=== PATIENT | male | born 1950 | race Caucasian/White ===

== ENCOUNTER 2017-01-07 14:17 | Emergency (ER) | payer MEDICARE, OTHER ==
[~2017-01-07] VITALS: Ht 167.6 cm; Wt 76.0 kg
[~2017-01-07 14:17] MED LIST: ALBU6.7H INH; ALLO300T2 PO; ALPR.5 PO; ASPI1TAB69 PO; BENA40TA PO; EFFE150C PO; LIPI20TA PO; MAXZTAB PO; MEDR4PAK PO; MIRA0.12 PO; OXYC1CAP PO; PERC5TAB12 PO; PLAV75TA29 PO; SITA25 PO; VIST25CA PO
[2017-01-07 14:20] VITALS: BP 98/63; PULSE 62; RESP 16; TEMP 98; O2SAT 99
[2017-01-07] MEDS ORDERED: MIRA0.12 PO (14:44)
--- NOTE | 2017-01-07 14:47 | PD ---
HPI Chief Complaint: Medication Refill Request Time Seen by Provider: 14:44 Travel History International Travel<30 days: No Contact w/Intl Traveler<30days: No Traveled to known affect area: No History of Present Illness HPI 66-year-old male presents the emergency Department with request for medication refill of his Mirapex. Patient has history of restless leg syndrome. He recently had a mixup with his prescriptions and insurance changes and he's been unable to refill his Mirapex. Patient is unable to sleep for the past 2 nights because of it. He has no other acute medical issues or problems. He is allergic to Cipro and sulfa. PFSH Past Medical History Hx Anticoagulant Therapy: Yes (PLAVIX) Asthma: Yes Anxiety: Yes Depression: Yes Cardiac Catheterization: Yes High Cholesterol: Yes Chest Pain: Yes Diabetes: Yes (TYPE 2) Patient Takes Glucophage: No GERD: Yes Gout: Yes Hypertension: Yes Kidney Stones: Yes Musculoskeletal: Yes (CHRONIC BACK PAIN GETS INJECTIONS) Neurologic: Yes (RLS) Respiratory: Yes (ASTHMA) Triglycerides - High: Yes Past Surgical History Other Surgery: Yes (Rhinoplasty/TRIGER FINGER RELEASE) Social History Alcohol Use: Yes (Rarely) Tobacco Use: No Substance Use: No Allergies-Medications (Allergen,Severity, Reaction): Coded Allergies: Cipro (Verified Allergy, Severe, RASH, 01/07/17) Sulfa (Verified Allergy, Unknown, ITCHY, 01/07/17) Reported Meds & Prescriptions Reported Meds & Active Scripts Active Mirapex (Pramipexole Dihydrochloride) 0.125 Mg Tab 0.125 Mg PO HS Reported Percocet (Oxycodone-Acetaminophen) 5-325 mg Tab 1 Tab PO Q4H PRN Proventil Hfa 6.7 GM Inh (Albuterol Sulfate) 90 Mcg/Act Aer 2 Puff INH Q4-6H PRN Januvia (Sitagliptin Phosphate) 25 Mg Tab 25 Mg PO DAILY Effexor XR 24 HR (Venlafaxine HCl) 150 Mg Cap 150 Mg PO DAILY Allopurinol 300 Mg Tab Unknown Dose PO DAILY Aspirin 81 Mg Tabdr 81 Mg PO DAILY Xanax (Alprazolam) 0.5 Mg Tab 0.5 Mg PO TID PRN Mirapex (Pramipexole Dihydrochloride) 0.125 Mg Tab Unknown Dose PO HS Lipitor (Atorvastatin Calcium) 20 Mg Tab 20 Mg PO HS Maxzide-25 (Triamterene-Hydrochlorothiazide) 37.5-25 Mg Tab 1 Tab PO DAILY Benazepril (Benazepril HCl) 40 Mg Tab 40 Mg PO DAILY Review of Systems Except as stated in HPI: all other systems reviewed are Neg General / Constitutional: No: Fever Eyes: No: Visual changes HENT: No: Headaches Cardiovascular: No: Chest Pain or Discomfort Respiratory: No: Shortness of Breath Gastrointestinal: No: Abdominal Pain Genitourinary: No: Dysuria Musculoskeletal: No: Pain Skin: No Rash Neurologic: No: Weakness Psychiatric: No: Depression Endocrine: No: Polydipsia Hematologic/Lymphatic: No: Easy Bruising Physical Exam Narrative GENERAL: Patient appears tired but in no acute distress. SKIN: Warm and dry. Normal color. Normal turgor. HEAD: Atraumatic. Normocephalic. EYES: Pupils equal and round. No scleral icterus. No injection or drainage. ENT: No nasal bleeding or discharge. Mucous membranes pink and moist. Pharynx is normal. NECK: Trachea midline. Supple nontender. CARDIOVASCULAR: Regular rate and rhythm. RESPIRATORY: No accessory muscle use. Clear to auscultation. Breath sounds equal bilaterally. MUSCULOSKELETAL: Extremities without clubbing, cyanosis, or edema. No obvious deformities. NEUROLOGICAL: Awake and alert. No obvious cranial nerve deficits. Motor grossly within normal limits. Five out of 5 muscle strength in the arms and legs. Normal speech. PSYCHIATRIC: Appropriate mood and affect; insight and judgment normal. Data Data Last Documented VS Vital Signs Date Time Temp Pulse Resp B/P Pulse Ox O2 Delivery O2 Flow Rate FiO2 01/07/17 14:20 98.0 62 16 98/63 99 MDM Medical Decision Making Medical Screen Exam Complete: Yes Emergency Medical Condition: Yes Differential Diagnosis Restless leg syndrome. Insurance issues. Refill request. Narrative Course Patient is medically stable at time of exam. Patient is given a refill of Mirapex 0.125 mg 1 at bedtime. #90. No refill. Patient is to follow with his primary care physician as needed. Diagnosis Primary Impression: Medication refill Additional Impression: Restless leg syndrome Referrals: Primary Care Physician Patient Instructions: General Instructions Additional Instructions: Patient is given a refill of Mirapex 0.125 mg 1 at bedtime. #90. No refill. Patient is to follow with his primary care physician as needed. Med/Other Pt SpecificInfo: Prescription(s) given Scripts Pramipexole (Mirapex)0.125 Mg Tab0.125 Mg PO HS #90 TAB Ref 0 Prov:Merlin De León MD 01/07/17 Disposition: 01 DISCHARGE HOME Condition: Stable Luke Chung Jan 07, 2017 14:47
== END 2017-01-07 14:57 | disposition home or self-care (01) ==
LOC: PHEFT 14:17
DX: G25.81 Restless legs syndrome (principal); Z79.01 Long term (current) use of anticoagulants; J45.909 Unspecified asthma, uncomplicated; E11.9 Type 2 diabetes mellitus without complications; I10 Essential (primary) hypertension; Z79.899 Other long term (current) drug therapy
CPT/HCPCS: 99281

== ENCOUNTER → 2017-01-11 | Day surgery (SDC) | payer MEDICARE, OTHER ==
[~2017-01-11] MED LIST changes: +ALPR.25 PO; +BUPIVACAINE/EPINEPHRINE 0.5% PF 30 ML VIAL ONE; +CARV3.12 PO; +KETOROLAC TROMETHAMINE 30 MG/ML (IVP) VIAL IV PUSH ONE; +LACTATED RINGER'S 1000 ML INJ 1,000 ML ONE; -MEDR4PAK PO; +MIDAZOLAM HCL 2 MG/2 ML VIAL ONE; +ONDANSETRON HCL 4 MG/2 ML VIAL IV PUSH ONE; -OXYC1CAP PO; +PROPOFOL 100 MG/10 ML INJ IV ONE; -VIST25CA PO; +ceFAZolin 2 GM PREMIX 50 ML ONE
--- NOTE | 2017-01-15 09:46 | MP ---
cc: ROCIO LANCASTER M.D. DATE OF SURGERY: 01/11/2017 PREOPERATIVE DIAGNOSIS Left knee medial meniscus tear and exposed bone, grade IV chondromalacia anterior medial aspect of weightbearing portion of the medial femoral condyle. POSTOPERATIVE DIAGNOSIS Left knee medial meniscus tear and exposed bone, grade IV chondromalacia anterior medial aspect of weightbearing portion of the medial femoral condyle. PROCEDURE 1. Left knee arthroscopic partial medial meniscectomy. 2. Left knee arthroscopic chondral abrasion with drilling medial femoral condyle. ANESTHESIA General. SURGEON Rocio Lancaster MD ESTIMATED BLOOD LOSS Minimal. INDICATION Thiago Morris is an adult male with persistent left knee pain and swelling with MRI findings of medial meniscus tear and significant chondromalacia, grade IV, exposed bone on medial femoral condyle. The risks, benefits and alternatives to treatment were thoroughly discussed in detail and informed consent was obtained. DETAILS OF PROCEDURE The patient was brought to the operating room and was placed under general anesthetic. The left lower extremity was draped and prepped in the usual sterile fashion. IV antibiotics were given. A timeout was completed. Marcaine was injected about the inferolateral portal, portal made. Blunt trocar used to introduce the cannula. The knee was insufflated with saline and the patellofemoral joint visualized which appeared normal. The notch was visualized which appeared normal with normal-appearing ACL, lateral compartment, normal-appearing condyle, meniscus plateau. Medial compartment showed significant chondromalacia on the weightbearing portion of the medial femoral condyle as well as an unstable tear involving the posterior horn of the medial meniscus which involved the inner 30-40% of the posterior horn. Additionally, we saw grade IV chondromalacia on the anterior weightbearing portion of the medial femoral condyle. We proceeded with arthroscopic partial medial meniscectomy using a combination of basket forceps and arthroscopic shaver. We then proceeded to perform a gentle chondroplasty to smooth down the cartilage on the medial femoral condyle including the area of the exposed bone. Cartilage was delaminated this area and came right off. A decision was made to proceed with gentle chondral abrasion and we abraded the surface and then proceeded with use of a 0.45 K-wire to make tiny drill holes in the bone and confirm that we had good bleeding. We then repeated the arthroscopy to remove any small bone fragments and smooth and contour. We then took our final photograph. Repeat diagnostic arthroscopy revealed no loose bodies. The arthroscopic equipment was removed. Marcaine had been injected about the portals. Steri-Strips applied. Sterile dressing applied. The patient was awoken and returned to the recovery room in stable condition. MD SHARON Palma/PATY /8:44 AM /9:33 AM
== END | disposition home or self-care (01) ==
LOC: ESDC 06:23
PROVIDERS: ATTEND Orthopaedic Surgery Sports Medicine
DX: S83.242A Other tear of medial meniscus, current injury, left knee, initial encounter (principal); M94.262 Chondromalacia, left knee
CPT/HCPCS: 01400; 29879; 29881; J0690; J1885; J2250; J2405; J3010; J7120

== ENCOUNTER 2017-01-20 20:31 | Emergency (ER) | payer MEDICARE, OTHER ==
[~2017-01-20 20:31] MED LIST changes: -ALPR.25 PO; -BUPIVACAINE/EPINEPHRINE 0.5% PF 30 ML VIAL ONE; -CARV3.12 PO; -KETOROLAC TROMETHAMINE 30 MG/ML (IVP) VIAL IV PUSH ONE; -LACTATED RINGER'S 1000 ML INJ 1,000 ML ONE; -MIDAZOLAM HCL 2 MG/2 ML VIAL ONE; -ONDANSETRON HCL 4 MG/2 ML VIAL IV PUSH ONE; -PLAV75TA29 PO; -PROPOFOL 100 MG/10 ML INJ IV ONE; -ceFAZolin 2 GM PREMIX 50 ML ONE
[2017-01-20 21:01] VITALS: BP 133/101; PULSE 96; RESP 20; TEMP 98
[2017-01-20] MEDS ORDERED: ALBU6.7H INH (22:05)
[2017-01-20] MEDS ORDERED: methylPREDNISolone SOD SUCC 125 MG/2 ML VIAL IVP ONE (22:15)
[2017-01-20] MEDS ORDERED: SODIUM CHLORIDE 0.9% FLUSH 10 ML FLUSH IVF PRN (22:15)
[2017-01-20] MEDS: RESP: ALBUTEROL 2.5 MG/IPRATROPIUM 0.5 MG NEB (SCH) INH (22:19)
--- NOTE | 2017-01-20 22:25 | RADHPO ---
EXAM DATE/TIME: 01/20/2017 22:15 [facility] COMPARISON: CHEST SINGLE AP, May 25, 2016, 11:18. INDICATIONS : Shortness of breath. MEDICAL HISTORY : Hypertension. Hypercholesterolemia. Gastroesophageal reflux disease. Asthma. Diabetes SURGICAL HISTORY : Cardiac cath. ENCOUNTER: Initial ACUITY: 1 day PAIN SCORE: 0/10 LOCATION: Bilateral chest FINDINGS: A single view of the chest demonstrates the lungs to be symmetrically aerated without evidence of mas s, infiltrate or effusion. The cardiomediastinal contours are unremarkable. Osseous structures are intact. CONCLUSION: No acute disease. No significant change has occurred. Theodore Mcdowell MD on January 20, 2017 at 22:23 Board Certified Radiologist. This report was verified electronically.
--- NOTE | 2017-01-20 22:25 | PD ---
HPI Chief Complaint: Cold / Flu Symptoms Time Seen by Provider: 22:02 Travel History International Travel<30 days: No Contact w/Intl Traveler<30days: No Traveled to known affect area: No History of Present Illness HPI 66-year-old male presents to the emergency department by private transportation for complaint of lower extremity pain and cold symptoms. Patient with history of asthma with increasing cold symptoms congestion and wheezing. Patient has been using his nebulizer without relief. Patient is also noted increased discomfort associated with his restless leg syndrome and has some swelling of the left lower extremity is 9 days status post left knee surgery. Patient does not report pleuritic pain. Patient denies hemoptysis. Patient denies fever chills. No yellow green sputum production. Patient is also noted some sinus congestion and dizziness with nausea. Patient has history of CAD and is prescribed Plavix and aspirin has been off his Plavix due to knee surgery also is treated for hypertension dyslipidemia and hyperglycemia. Patient denies tobacco use. Patient states he drinks socially. Last beer was prior to surgery. Patient reports that he stopped taking pain medication 2 days ago. PFSH Past Medical History Narrative Medical CAD dyslipidemia hypertension diabetes asthma arthritis restless leg syndrome knee surgery; no tobacco use, positive alcohol use; nursing notes reviewed Hx Anticoagulant Therapy: Yes (PLAVIX) Asthma: Yes Anxiety: Yes Depression: Yes Cardiac Catheterization: Yes High Cholesterol: Yes Chest Pain: Yes Diabetes: Yes (TYPE 2) Patient Takes Glucophage: No GERD: Yes Gout: Yes Hypertension: Yes Kidney Stones: Yes Musculoskeletal: Yes (CHRONIC BACK PAIN GETS INJECTIONS) Neurologic: Yes (RLS) Respiratory: Yes (ASTHMA) Triglycerides - High: Yes Tetanus Vaccination: > 5 Years Influenza Vaccination: Yes Past Surgical History Other Surgery: Yes (Rhinoplasty/TRIGER FINGER RELEASE) Social History Alcohol Use: Yes (Rarely) Tobacco Use: No Substance Use: No Allergies-Medications (Allergen,Severity, Reaction): Coded Allergies: Cipro (Verified Allergy, Severe, RASH, 01/20/17) Sulfa (Verified Allergy, Unknown, ITCHY, 01/20/17) Reported Meds & Prescriptions Reported Meds & Active Scripts Active Xanax (Alprazolam) 0.25 Mg Tab 0.25 Mg PO Q8H PRN Reported Carvedilol 3.125 Mg Tab 3.125 Mg PO BID Plavix (Clopidogrel Bisulfate) 75 Mg Tab 75 Mg PO DAILY Proventil Hfa 6.7 GM Inh (Albuterol Sulfate) 90 Mcg/Act Aer 2 Puff INH Q4-6H PRN Proventil Hfa 6.7 GM Inh (Albuterol Sulfate) 90 Mcg/Act Aer 2 Puff INH Q4-6H PRN Januvia (Sitagliptin Phosphate) 25 Mg Tab 25 Mg PO DAILY Effexor XR 24 HR (Venlafaxine HCl) 150 Mg Cap 150 Mg PO DAILY Allopurinol 300 Mg Tab Unknown Dose PO DAILY Aspirin 81 Mg Tabdr 81 Mg PO DAILY Xanax (Alprazolam) 0.5 Mg Tab 0.5 Mg PO TID PRN Mirapex (Pramipexole Dihydrochloride) 0.125 Mg Tab Unknown Dose PO HS Lipitor (Atorvastatin Calcium) 20 Mg Tab 20 Mg PO HS Maxzide-25 (Triamterene-Hydrochlorothiazide) 37.5-25 Mg Tab 1 Tab PO DAILY Benazepril (Benazepril HCl) 40 Mg Tab 40 Mg PO DAILY Review of Systems Except as stated in HPI: all other systems reviewed are Neg General / Constitutional: No: Fever, Chills Eyes: No: Visual changes HENT: Positive: Congestion Cardiovascular: No: Chest Pain or Discomfort Respiratory: Positive: Cough, Shortness of Breath, Wheezing Gastrointestinal: Positive: Nausea, No: Vomiting, Diarrhea Genitourinary: No: Urgency, Frequency, Dysuria, Flank Pain Musculoskeletal: Positive: Myalgias, Arthralgias, Limited ROM (Lknee s/p surgery ---improving) Skin: No Rash Neurologic: No: Weakness Psychiatric: No: Anxiety Endocrine: No: Heat Intolerance Hematologic/Lymphatic: No: Easy Bruising Physical Exam Narrative GENERAL: Developed well-nourished male in no acute distress no respiratory distress SKIN: Warm and dry. HEAD: Normocephalic. EYES: No scleral icterus. No injection or drainage. NECK: Supple, trachea midline. No JVD or lymphadenopathy. CARDIOVASCULAR: Regular rate and rhythm without murmurs, gallops, or rubs. RESPIRATORY: Breath sounds equal bilaterally. No accessory muscle use. GASTROINTESTINAL: Abdomen soft, non-tender, nondistended. MUSCULOSKELETAL: No cyanosis, or edema. BACK: Nontender without obvious deformity. No CVA tenderness. Data Data Last Documented VS Vital Signs Date Time Temp Pulse Resp B/P Pulse Ox O2 Delivery O2 Flow Rate FiO2 01/21/17 03:09 90 20 162/92 96 01/21/17 01:10 Room Air 01/20/17 21:01 98.0 Orders Complete Blood Count With Diff (01/20/17 22:03) Basic Metabolic Panel (Bmp) (01/20/17 22:03) B-Type Natriuretic Peptide (01/20/17 22:03) Act Partial Throm Time (Ptt) (01/20/17 22:03) Prothrombin Time / Inr (Pt) (01/20/17 22:03) Magnesium (Mg) (01/20/17 22:03) Troponin I (01/20/17 22:03) Iv Access Insert/Monitor (01/20/17 22:03) Electrocardiogram (01/20/17 22:03) Ecg Monitoring (01/20/17 22:03) Oximetry (01/20/17 22:03) Oxygen Administration (01/20/17 22:03) Chest, Single Ap (01/20/17 22:03) Sodium Chloride 0.9% Flush (Ns Flush) (01/20/17 22:15) Methylprednisolone So Succ Inj (Solumedr (01/20/17 22:15) Albuterol-Ipratropium Neb (Duoneb Neb) (01/20/17 22:15) Alcohol (Ethanol) (01/20/17 22:03) Us Leg Venous Doppler (01/20/17 ) Alprazolam (Xanax) (01/21/17 02:45) Labs Laboratory Tests Test 01/20/17 22:28 White Blood Count 7.4 TH/MM3 Red Blood Count 4.64 MIL/MM3 Hemoglobin 13.3 GM/DL Hematocrit 40.6 % Mean Corpuscular Volume 87.5 FL Mean Corpuscular Hemoglobin 28.7 PG Mean Corpuscular Hemoglobin 32.8 % Concent Red Cell Distribution Width 14.3 % Platelet Count 423 TH/MM3 Mean Platelet Volume 7.1 FL Neutrophils (%) (Auto) 60.2 % Lymphocytes (%) (Auto) 22.9 % Monocytes (%) (Auto) 9.2 % Eosinophils (%) (Auto) 7.3 % Basophils (%) (Auto) 0.4 % Neutrophils # (Auto) 4.5 TH/MM3 Lymphocytes # (Auto) 1.7 TH/MM3 Monocytes # (Auto) 0.7 TH/MM3 Eosinophils # (Auto) 0.5 TH/MM3 Basophils # (Auto) 0.0 TH/MM3 CBC Comment DIFF FINAL Differential Comment Prothrombin Time 11.4 SEC Prothromb Time International 1.0 RATIO Ratio Activated Partial 28.9 SEC Thromboplast Time Sodium Level 140 MEQ/L Potassium Level 3.7 MEQ/L Chloride Level 102 MEQ/L Carbon Dioxide Level 28.4 MEQ/L Anion Gap 10 MEQ/L Blood Urea Nitrogen 18 MG/DL Creatinine 1.30 MG/DL Estimat Glomerular Filtration 55 ML/MIN Rate Random Glucose 111 MG/DL Calcium Level 9.8 MG/DL Magnesium Level 1.8 MG/DL Troponin I LESS THAN 0.02 NG/ML B-Type Natriuretic Peptide 13 PG/ML Ethyl Alcohol Level LESS THAN 3 MG/DL MDM Medical Decision Making Medical Screen Exam Complete: Yes Emergency Medical Condition: Yes Medical Record Reviewed: Yes Interpretation(s) EKG: Normal sinus rhythm rate [address] elevation or injury pattern change or ectopy noted Differential Diagnosis Exacerbation asthma, bronchitis, pneumonia, PE, DVT, vertigo, sinusitis, arrhythmia, dehydration Narrative Course DuoNeb updraft administered Solu-Medrol administered Patient placed on monitor EKG performed which revealed no acute injury pattern change chest x-ray reveal no lobar infiltrate ultrasound performed and no evidence for DVT. Patient informed of imaging results EKG and lab results in stable for outpatient management. Patient given Xanax 0.5 mg prior to discharge for ongoing complaint of restless leg syndrome and encouraged to keep follow-up appointment with his primary provider and to continue his chronic medications as presently prescribed. Diagnosis Primary Impression: Asthma Qualified Code: J45.20 - Mild intermittent asthma without complication Additional Impressions: URI (upper respiratory infection) Qualified Code: J06.9 - Upper respiratory tract infection, unspecified type Restless leg syndrome Referrals: Primary Care Physician call for appointment Patient Instructions: General Instructions Additional Instructions: Increase fluid hydration Continue current medications as presently prescribed Return to the emergency department for any concerns or change in condition Follow-up with your primary care provider call office on Sunday to schedule appointment Med/Other Pt SpecificInfo: Prescription(s) given Scripts Alprazolam (Xanax)0.25 Mg Tab0.25 Mg PO Q8H PRN (ANXIETY) #10 TAB Ref 0 Prov:Marie Ayers MD 01/21/17 Disposition: 01 DISCHARGE HOME Condition: Stable Marie Ayers MD Jan 20, 2017 22:24
[2017-01-20 22:33] LABS: AUTOMATED NEUTROPHIL # 4.5 TH/MM3 (1.8-7.7); BASOPHIL % 0.4 % (0.0-2.0); EOSINOPHIL # 0.5 TH/MM3 (0-0.4); EOSINOPHIL % 7.3 % (0.0-4.0); HEMATOCRIT 40.6 % (39.0-51.0); HEMO FLAGS DIFF FINAL; LYMPH % 22.9 % (9.0-44.0); LYMPHOCYTE # 1.7 TH/MM3 (1.0-4.8); MEAN CELL VOLUME 87.5 FL (80.0-100.0); MEAN CORPUSCULAR HEMOGLOBIN 28.7 PG (27.0-34.0); MEAN CORPUSCULAR HGB CONC 32.8 % (32.0-36.0); MONO % 9.2 % (0.0-8.0); NEUT % 60.2 % (16.0-70.0); PLATELET COUNT 423 TH/MM3 (150-450); RED BLOOD COUNT 4.64 MIL/MM3 (4.50-5.90); RED CELL DISTRIBUTION WIDTH 14.3 % (11.6-17.2); WHITE BLOOD COUNT 7.4 TH/MM3 (4.0-11.0)
[2017-01-20 22:38] VITALS: BP 148/93; PULSE 80; RESP 20; O2SAT 99
[2017-01-20 22:39] VITALS: O2SAT 98
[2017-01-20 22:41] LABS: CHLORIDE 102 MEQ/L (98-107); POTASSIUM 3.7 MEQ/L (3.5-5.1); SODIUM (NA) 140 MEQ/L (136-145)
[2017-01-20 22:44] LABS: ANION GAP 10 MEQ/L (5-15); BICARBONATE 28.4 MEQ/L (21.0-32.0); BLOOD UREA NITROGEN 18 MG/DL (7-18); MAGNESIUM 1.8 MG/DL (1.5-2.5)
[2017-01-20 22:46] LABS: APTT (PATIENT) 28.9 SEC (24.3-30.1); PROTHROMBIN TIME - PATIENT 11.4 SEC (9.8-11.6)
[2017-01-20 22:47] LABS: GLOMERULAR FILTRATION RATE 55 ML/MIN (>89)
[2017-01-20] MEDS ORDERED: PLAV75TA29 PO (22:57)
[2017-01-20 23:10] VITALS: BP 172/88; PULSE 93; RESP 22
--- NOTE | 2017-01-20 23:14 | RADHPO ---
EXAM DATE/TIME: 01/20/2017 22:32 [facility] COMPARISON: US LEG LEFT VENOUS DOPPLER, October 05, 2016, 12:50. EXTERNAL COMPARISON : [facility], MR KNEE LEFT W/O CONTRAST, November 20, 2016 INDICATIONS : Left leg pain. Status post left knee replacement. MEDICAL HISTORY : Renal calculi. Gastroesophageal reflux disease. Diabetes mellitus type 2. Left leg pain. Anticoagu lation therapy. SURGICAL HISTORY : Left knee replacement 2017. Rhinoplasty. Right knee surgery. Right rotator cuff surgery. ENCOUNTER: Initial ACUITY: 3 days PAIN SCORE: 5/10 LOCATION: Left leg. TECHNIQUE: Venous ultrasound of the leg was performed from the inguinal ligament to the proximal calf. Real-anayeli e, color Doppler and spectral tracing, compression and augmentation techniques were used. FINDINGS: There is normal compressibility of the deep venous system from the inguinal region to the proximal ca lf. No echogenic clot is seen in the lumen of the common femoral, femoral, popliteal, and posterior tibial veins. There is a normal response of the venous system to proximal and distal augmentation an d respiration. There is a 3.0 x 1.4 x 3.5 cm complex cystic area in the popliteal fossa. CONCLUSION: 1. No DVT. 2. Complex Newton's cyst. Devin Cristobal MD on January 20, 2017 at 23:11 Board Certified Radiologist. This report was verified electronically.
[2017-01-20] MEDS ORDERED: CARV3.12 PO (23:30)
[2017-01-21 00:05] VITALS: BP 155/85; PULSE 92; RESP 20; O2SAT 95
[2017-01-21 01:10] VITALS: BP 159/88; PULSE 94; RESP 20
[2017-01-21] MEDS ORDERED: ALPR.25 PO (02:38)
[2017-01-21] MEDS ORDERED: ALPRAZolam 0.5 MG TAB PO ONE (02:45)
[2017-01-21 03:09] VITALS: BP 162/92
--- NOTE | 2017-01-22 14:08 | EKG ---
Date Performed: 01/20/2017 Time Performed: 22:09:10 PTAGE: 66 years EKG: Sinus rhythm Since previous tracing, no significant change noted Normal ECG PREVIOUS TRACING : 03/27/2016 09.52 DOCTOR: Alyssa Garza Interpretating Date/Time 01/22/2017 14:06:52
== END 2017-01-21 03:09 | disposition home or self-care (01) ==
LOC: PHED 20:31
DX: J45.20 Mild intermittent asthma, uncomplicated (principal); J06.9 Acute upper respiratory infection, unspecified; G25.81 Restless legs syndrome; J45.909 Unspecified asthma, uncomplicated; E11.9 Type 2 diabetes mellitus without complications; K21.9 Gastro-esophageal reflux disease without esophagitis; I10 Essential (primary) hypertension; F32.9 Major depressive disorder, single episode, unspecified; Z79.899 Other long term (current) drug therapy; M79.606 Pain in leg, unspecified
CPT/HCPCS: 71010; 80048; 80307; 83735; 83880; 84484; 85025; 85610; 85730; 93005; 93971; 94640; 94664; 96374; 99284; J2930

== ENCOUNTER 2017-06-25 15:01 | Emergency (ER) | payer MEDICARE, OTHER ==
[~2017-06-25] VITALS: Ht 167.6 cm; Wt 78.3 kg
[~2017-06-25 15:01] MED LIST changes: +ALPR.25 PO; +CARV3.12 PO; -PERC5TAB12 PO; +PLAV75TA29 PO
[2017-06-25 16:22] VITALS: BP 148/69; PULSE 68; RESP 16; TEMP 98.2; O2SAT 97
--- NOTE | 2017-06-25 17:43 | RADRPT ---
EXAM DATE/TIME: 06/25/2017 17:30 [facility] COMPARISON: No previous studies available for comparison. INDICATIONS : Left foot pain; Possible foreign body. Stepped on nail today. MEDICAL HISTORY : None. SURGICAL HISTORY : None. ENCOUNTER: Initial ACUITY: 1 day PAIN SCORE: 10/10 LOCATION: Left lateral foot. FINDINGS: Three view examination of the left foot demonstrates soft tissue swelling laterally. Minimal lucency in the fifth metatarsal head could be artifact. No foreign body. Vascular calcifications. The calcan eus is intact. Bony mineralization is normal. CONCLUSION: Soft-tissue swelling laterally. No fracture. There is lucency of the fifth metatarsal head could be a rtifact. Osteomyelitis cannot be excluded. No foreign body. Lucian Garcia MD on June 25, 2017 at 17:38 Board Certified Radiologist. This report was verified electronically.
[2017-06-25] MEDS ORDERED: TETANUS/DIPHTHERIA TOXOID ADULT 0.5 ML VIAL IM ONE (19:30)
--- NOTE | 2017-06-25 19:42 | PD ---
HPI Chief Complaint: Skin Problem Time Seen by Provider: 19:16 Travel History International Travel<30 days: No Contact w/Intl Traveler<30days: No Traveled to known affect area: No History of Present Illness HPI Patient comes in complaining of puncture wound to the left foot that occurred around 1 PM today. Patient states he was trying to put his mailbox back when he accidentally stepped on a board with a nail causing a laceration/puncture wound to the lateral aspect of left foot distal metatarsal. Patient denies doing anything for this prior coming emergency department. Patient reports minimal tenderness around the site without radiation. Denies any numbness or tingling. Denies any fevers. Patient is uncertain of his last tetanus shot. PFSH Past Medical History Hx Anticoagulant Therapy: Yes (PLAVIX) Asthma: Yes Anxiety: Yes Depression: Yes Cardiac Catheterization: Yes High Cholesterol: Yes Chest Pain: Yes Diabetes: Yes (TYPE 2) Patient Takes Glucophage: No Diminished Hearing: No GERD: Yes Gout: Yes Hypertension: Yes Kidney Stones: Yes Musculoskeletal: Yes (CHRONIC BACK PAIN GETS INJECTIONS) Neurologic: Yes (RLS) Respiratory: Yes (ASTHMA) Triglycerides - High: Yes Tetanus Vaccination: Unknown ?: Not Past Surgical History Other Surgery: Yes (Rhinoplasty/TRIGER FINGER RELEASE) Social History Alcohol Use: Yes (Rarely) Tobacco Use: No Substance Use: No Allergies-Medications (Allergen,Severity, Reaction): Coded Allergies: ciprofloxacin (Unverified Allergy, Severe, RASH, 06/25/17) Sulfa (Sulfonamide Antibiotics) (Unverified Allergy, Unknown, ITCHY, ) Reported Meds & Prescriptions Reported Meds & Active Scripts Active Keflex (Cephalexin) 500 Mg Cap 500 Mg PO Q8H Xanax (Alprazolam) 0.25 Mg Tab 0.25 Mg PO Q8H PRN Reported Carvedilol 3.125 Mg Tab 3.125 Mg PO BID Plavix (Clopidogrel Bisulfate) 75 Mg Tab 75 Mg PO DAILY Proventil Hfa 6.7 GM Inh (Albuterol Sulfate) 90 Mcg/Act Aer 2 Puff INH Q4-6H PRN Proventil Hfa 6.7 GM Inh (Albuterol Sulfate) 90 Mcg/Act Aer 2 Puff INH Q4-6H PRN Januvia (Sitagliptin Phosphate) 25 Mg Tab 25 Mg PO DAILY Effexor XR 24 HR (Venlafaxine HCl) 150 Mg Cap 150 Mg PO DAILY Allopurinol 300 Mg Tab Unknown Dose PO DAILY Aspirin 81 Mg Tabdr 81 Mg PO DAILY Xanax (Alprazolam) 0.5 Mg Tab 0.5 Mg PO TID PRN Mirapex (Pramipexole Dihydrochloride) 0.125 Mg Tab Unknown Dose PO HS Lipitor (Atorvastatin Calcium) 20 Mg Tab 20 Mg PO HS Maxzide-25 (Triamterene-Hydrochlorothiazide) 37.5-25 Mg Tab 1 Tab PO DAILY Benazepril (Benazepril HCl) 40 Mg Tab 40 Mg PO DAILY Review of Systems Except as stated in HPI: all other systems reviewed are Neg Physical Exam Narrative GENERAL: Well-developed, overly nourished, in no acute distress, and non-ill appearing. SKIN: Small superficial abrasion versus puncture wound noted lateral aspect left foot distal metatarsal. There is no signs of foreign body. It is nontender, afebrile, and without crepitus.. HEAD: Atraumatic. Normocephalic. EYES: Pupils equal and round. EOMI. No scleral icterus. No injection or drainage. ENT: No nasal bleeding or discharge. Mucous membranes pink and moist. NECK: Trachea midline. Supple. No nuclear rigidity. CARDIOVASCULAR: Capillary refill is 2 seconds. RESPIRATORY: No accessory muscle use. No respiratory distress. MUSCULOSKELETAL: No obvious deformities. No clubbing. No cyanosis. No edema. Full range of motion. NEUROLOGICAL: Awake and alert. No obvious cranial nerve deficits. Motor grossly within normal limits. Normal speech. PSYCHIATRIC: Appropriate mood and affect; insight and judgment normal. Data Data Last Documented VS Vital Signs Date Time Temp Pulse Resp B/P (MAP) Pulse Ox O2 Delivery O2 Flow Rate FiO2 06/25/17 20:41 76 18 183/90 (121) 100 06/25/17 16:22 98.2 Orders Orders Foot, Complete ([id number]) (06/25/17 ) Wound Care (06/25/17 19:20) Tetanus/Diphtheria Tox Adult (Tetanus/Di (06/25/17 19:30) MDM Medical Decision Making Medical Screen Exam Complete: Yes Emergency Medical Condition: Yes Interpretation(s) Left foot x-ray read by the radiologist shows: Soft-tissue swelling laterally. No fracture. There is lucency of the fifth metatarsal head could be artifact. Osteomyelitis cannot be excluded. No foreign body. Differential Diagnosis Laceration, abrasion or puncture wound, foreign body, other Narrative Course The patient suffered laceration/puncture wound to the left foot. There was no evidence to suggest foreign bodies. Visual, tactile and radiographic exams were unremarkable without evidence of foreign body at this time. There was no evidence of neurovascular injury. The patient had a normal distal vascular exam , and had full normal motor and sensory exams. There was also no evidence or tendon injury, with normal distal full range of motions, flexion, extension, abduction, adduction and opponens. There was no evidence of local joint space involvement at this time. The patient was irrigated with copious sterile normal saline. Please see procedure note. The patient was given signs and symptom warnings for infection, such as increasing pain, redness, swelling, associated heat, pus or fever. The patient was warned of possible unseen foreign body and instructed to return immediately if signs or symptoms develop. The patient was given instructions for timely follow up. The patient agreed with plan of care. Patient in no obvious distress upon re-evaluation. All pertinent Radiology result(s) discussed with patient. Discussed patient with Dr. Yee, who saw and evaluated the patient and is in agreement with plan of care and disposition. Any questions/concerns in reference to patient diagnosis/ condition discussed and clarified prior to patient's discharge. Reinforced sheer importance of close follow up with patient's primary physician or primary care clinic. Instructed patient to return to ED immediately, if symptoms return/ worsen. Pt showed understanding of above instructions. Further instructions and recommendations were detailed in discharge paperwork. Pt ambulated without difficulty out of ED at discharge. Procedures Procedure Narrative Verbal consent was obtained. Wound was cleaned and irrigated with copious amounts of normal saline. Sterile dressing was placed. Patient tolerated procedure well. There was no complications. There was no sign of foreign body. 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 Take all medication as prescribed. Keep wound dry and clean as possible using soap and water. Use Neosporin to promote healing. Do not soak or submerge wound. Return to the emergency department if symptoms get worse. Med/Other Pt SpecificInfo: Prescription(s) given Scripts Cephalexin (Keflex) 500 Mg Cap 500 MG PO Q8H for Infection, #30 CAP 0 Refills Prov: Edgar Yee MD 06/25/17 Disposition: 01 DISCHARGE HOME Condition: Stable Chandra Valenzuela Jun 25, 2017 19:42
[2017-06-25] MEDS ORDERED: CEPH-460 PO (19:49)
[2017-06-25 20:41] VITALS: BP 183/90
== END 2017-06-25 20:42 | disposition home or self-care (01) ==
LOC: PHEFT 15:01
DX: S91.332A Puncture wound without foreign body, left foot, initial encounter (principal); W45.0XXA Nail entering through skin, initial encounter; J45.909 Unspecified asthma, uncomplicated; E78.00 Pure hypercholesterolemia, unspecified; E11.9 Type 2 diabetes mellitus without complications; K21.9 Gastro-esophageal reflux disease without esophagitis; M10.9 Gout, unspecified; I10 Essential (primary) hypertension; G25.81 Restless legs syndrome; Z79.01 Long term (current) use of anticoagulants
CPT/HCPCS: 73630; 90471; 90714

== ENCOUNTER 2017-09-02 09:25 | Emergency (ER) | payer MEDICARE, OTHER ==
[~2017-09-02] VITALS: Ht 167.6 cm; Wt 78.0 kg
[~2017-09-02 09:25] MED LIST changes: +CEPH-460 PO
[2017-09-02 09:29] VITALS: BP 128/76; PULSE 74; RESP 16; TEMP 98.2; O2SAT 98
--- NOTE | 2017-09-02 09:43 | PD ---
HPI Chief Complaint: Headache Time Seen by Provider: 09:39 Travel History International Travel<30 days: No Contact w/Intl Traveler<30days: No Traveled to known affect area: No History of Present Illness HPI Patient presents with complaints of headache and neck pain. 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 Denies any loss of consciousness. States he saw stars. He is on Plavix and daily aspirin for cardiac protection with risk factors including hypertension and hyperlipidemia. Denies any new chest pain shortness of breath urinary or bowel symptoms. PFSH Past Medical History Hx Anticoagulant Therapy: Yes (PLAVIX) Asthma: Yes Anxiety: Yes Depression: Yes Cardiac Catheterization: Yes High Cholesterol: Yes Chest Pain: Yes Diabetes: Yes (TYPE 2) Diminished Hearing: No GERD: Yes Gout: Yes Hypertension: Yes Kidney Stones: Yes Musculoskeletal: Yes (CHRONIC BACK PAIN GETS INJECTIONS) Neurologic: Yes (RLS) Respiratory: Yes (ASTHMA) Triglycerides - High: Yes Past Surgical History Other Surgery: Yes (Rhinoplasty/TRIGER FINGER RELEASE) Social History Alcohol Use: Yes (Rarely) Tobacco Use: No Substance Use: No Allergies-Medications (Allergen,Severity, Reaction): Coded Allergies: ciprofloxacin (Unverified Allergy, Severe, RASH, 09/02/17) Sulfa (Sulfonamide Antibiotics) (Unverified Allergy, Unknown, ITCHY, 09/02) Reported Meds & Prescriptions Reported Meds & Active Scripts Active Reported Aspirin 81 Mg Chew 81 Mg CHEW DAILY Carvedilol 3.125 Mg Tab 3.125 Mg PO DAILY Plavix (Clopidogrel Bisulfate) 75 Mg Tab 75 Mg PO DAILY Proventil Hfa 6.7 GM Inh (Albuterol Sulfate) 90 Mcg/Act Aer 2 Puff INH Q4-6H PRN Januvia (Sitagliptin Phosphate) 25 Mg Tab 25 Mg PO DAILY Effexor XR 24 HR (Venlafaxine HCl) 150 Mg Cap 150 Mg PO DAILY Allopurinol 300 Mg Tab Unknown Dose PO DAILY Xanax (Alprazolam) 0.5 Mg Tab 0.5 Mg PO TID PRN Mirapex (Pramipexole Dihydrochloride) 0.125 Mg Tab Unknown Dose PO HS Lipitor (Atorvastatin Calcium) 20 Mg Tab 20 Mg PO HS Maxzide-25 (Triamterene-Hydrochlorothiazide) 37.5-25 Mg Tab 1 Tab PO DAILY Benazepril (Benazepril HCl) 40 Mg Tab 40 Mg PO DAILY Review of Systems General / Constitutional: No: Fever Eyes: No: Visual changes HENT: Positive: Headaches Cardiovascular: No: Chest Pain or Discomfort Respiratory: No: Shortness of Breath Gastrointestinal: No: Abdominal Pain Genitourinary: No: Dysuria Musculoskeletal: No: Pain Skin: No Rash Neurologic: No: Weakness Psychiatric: No: Depression Endocrine: No: Polydipsia Hematologic/Lymphatic: No: Easy Bruising Physical Exam Narrative GENERAL: Well-nourished, well-developed patient. SKIN: Focused skin assessment warm/dry. HEAD: Normocephalic. No sign of trauma Examination the cervical spine reveals midline tenderness without bilateral paraspinous pain good upper extremity strength EYES: No scleral icterus. No injection or drainage. NECK: Supple, trachea midline. No JVD or lymphadenopathy. CARDIOVASCULAR: Regular rate and rhythm without murmurs, gallops, or rubs. RESPIRATORY: Breath sounds equal bilaterally. No accessory muscle use. GASTROINTESTINAL: Abdomen soft, non-tender, nondistended. MUSCULOSKELETAL: No cyanosis, or edema. BACK: Nontender without obvious deformity. No CVA tenderness. Data Data Last Documented VS Vital Signs Date Time Temp Pulse Resp B/P (MAP) Pulse Ox O2 Delivery O2 Flow Rate FiO2 09/02/17 10:40 16 09/02/17 10:38 58 118/70 (86) 98 Room Air 09/02/17 09:[address] Brain W/O Iv Contrast(Rout) (09/02/17 ) Ct Cerv Spine W/O Contrast (09/02/17 ) Acetamin-Hydrocod 325-5 Mg ([place] 5-325 (09/02/17 09:45) MDM Medical Decision Making Medical Screen Exam Complete: Yes Emergency Medical Condition: Yes Differential Diagnosis CVA, subdural hematoma, cervical spine fracture, cervical spine strain, cephalgia Narrative Course Assessment and plan discussed with patient at bedside. Diagnosis Primary Impression: Concussion Qualified Codes: S06.0X0A - Concussion without loss of consciousness, initial encounter Additional Impression: Cervical strain Qualified Codes: S16.1XXA - Strain of muscle, fascia and tendon at neck level , initial encounter Patient Instructions: General Instructions Additional Instructions: Encourage nonsteroidal anti-inflammatories warm heat gentle stretching and strengthening and massage. Follow-up with PCP. Return to emergency room with any onset of new symptoms. Med/Other Pt SpecificInfo: Prescription(s) given Scripts Hydrocodone-Acetaminophen (Hydrocodone-Acetaminophen) 5-325 mg Tab 1 TAB PO Q4H Y for PAIN, #20 TAB 0 Refills Prov: Merlin De León MD 09/02/17 Cyclobenzaprine (Flexeril) 10 Mg Tab 10 MG PO TID for Muscle Spasm, #90 TAB 0 Refills Prov: Merlin De León MD 09/02/17 Disposition: 01 DISCHARGE HOME Condition: Good Merlin De León MD Sep 02, 2017 09:43
[2017-09-02] MEDS ORDERED: ASPI-516 CHEW (09:44)
[2017-09-02] MEDS ORDERED: ACETAMINOPHEN/HYDROcodone 325 MG/5 MG TAB PO ONE (09:45)
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
[2017-09-02 10:38] VITALS: BP 118/70; PULSE 58; RESP 18; O2SAT 98
[2017-09-02] MEDS ORDERED: CYCL10TA PO (11:08)
[2017-09-02] MEDS ORDERED: HYDR-3516 PO (11:08)
[2017-09-02 11:21] VITALS: BP 140/77; PULSE 74; RESP 18; O2SAT 98
== END 2017-09-02 11:27 | disposition home or self-care (01) ==
LOC: PHED 09:25
DX: S06.0X0A Concussion without loss of consciousness, initial encounter (principal); S16.1XXA Strain of muscle, fascia and tendon at neck level, initial encounter; W20.8XXA Other cause of strike by thrown, projected or falling object, initial encounter; Y93.89 Activity, other specified
CPT/HCPCS: 70450; 72125; 99285

== ENCOUNTER 2017-09-16 00:39 | Inpatient (IN) | payer MEDICARE, OTHER ==
[2017-09-16] VITALS (19 sets, daily range): BP systolic 109–174; BP diastolic 53–92; PULSE 50–75; RESP 16–18; TEMP 96.4–98.3; O2SAT 96–99
[~2017-09-16] VITALS: Ht 167.6 cm; Wt 79.0 kg
[~2017-09-16 00:39] MED LIST changes: -ALPR.25 PO; +ASPI-516 CHEW; -ASPI1TAB69 PO; -CEPH-460 PO; +CYCL10TA PO; +HYDR-3516 PO
[2017-09-16] MEDS ORDERED: SODIUM CHLORIDE 0.9% FLUSH 10 ML FLUSH IVF PRN (02:00)
[2017-09-16] MEDS ORDERED: NITROGLYCERIN 2% OINT 1 GM PACKET TOP ONE (02:00)
[2017-09-16] MEDS ORDERED: SODIUM CHLORID 0.9% 500 ML INJ 500 ML IV ONE (02:00)
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
[2017-09-16 02:22] LABS: BASOPHIL % 0.5 % (0.0-2.0); EOSINOPHIL # 0.4 TH/MM3 (0-0.4); EOSINOPHIL % 5.4 % (0.0-4.0); HEMO FLAGS DIFF FINAL; LYMPH % 26.7 % (9.0-44.0); LYMPHOCYTE # 2.2 TH/MM3 (1.0-4.8); MEAN CELL VOLUME 94.7 FL (80.0-100.0); MEAN CORPUSCULAR HEMOGLOBIN 30.5 PG (27.0-34.0); MEAN CORPUSCULAR HGB CONC 32.2 % (32.0-36.0); MONO % 7.3 % (0.0-8.0); NEUT % 60.1 % (16.0-70.0); PLATELET COUNT 261 TH/MM3 (150-450); RED BLOOD COUNT 4.54 MIL/MM3 (4.50-5.90); RED CELL DISTRIBUTION WIDTH 14.3 % (11.6-17.2); WHITE BLOOD COUNT 8.2 TH/MM3 (4.0-11.0)
[2017-09-16 02:30] LABS: CHLORIDE 102 MEQ/L (98-107); POTASSIUM 3.6 MEQ/L (3.5-5.1); SODIUM (NA) 139 MEQ/L (136-145)
--- NOTE | 2017-09-16 02:30 | RADRPT ---
EXAM DATE/TIME: 09/16/2017 02:16 [facility] COMPARISON: CHEST SINGLE AP, January 20, 2017, 22:15. INDICATIONS : Left chest and neck pain. MEDICAL HISTORY : Renal calculi. Gastroesophageal reflux disease. Diabetes mellitus type 2. SURGICAL HISTORY : Left knee replacement 2017. Rhinoplasty. Right knee surgery. Right rotator cuff surgery ENCOUNTER: Initial ACUITY: 1 day PAIN SCORE: 2/10 LOCATION: Left chest FINDINGS: PA and lateral views of the chest demonstrate a normal-sized cardiac silhouette. There is no effusion , consolidation, or pneumothorax. The bones and soft tissues demonstrate no acute abnormality. CONCLUSION: No acute cardiopulmonary abnormality is identified. Devin Umanzor MD on September 16, 2017 at 2:28 Board Certified Radiologist. This report was verified electronically.
[2017-09-16 02:34] LABS: ANION GAP 8 MEQ/L (5-15); BICARBONATE 29.4 MEQ/L (21.0-32.0); BLOOD UREA NITROGEN 21 MG/DL (7-18); MAGNESIUM 1.8 MG/DL (1.5-2.5)
[2017-09-16 02:35] LABS: APTT (PATIENT) 27.1 SEC (24.3-30.1); PROTHROMBIN TIME - PATIENT 11.6 SEC (9.8-11.6)
[2017-09-16 02:37] LABS: ALT (GPT) 43 U/L (12-78); AST (GOT) 32 U/L (15-37); GLOMERULAR FILTRATION RATE 50 ML/MIN (>89)
[2017-09-16 02:39] LABS: TOTAL BILIRUBIN ADULT 0.4 MG/DL (0.2-1.0)
[2017-09-16 02:40] LABS: ALKALINE PHOSPHATASE 110 U/L (45-117); CREATINE KINASE 179 U/L (39-308)
[2017-09-16 02:52] LABS: CKMB 3.2 NG/ML (0.5-3.6)
[2017-09-16] MEDS ORDERED: REGADENOSON INJ 0.4 MG/5 ML SYR IV ONE (03:32)
[2017-09-16] MEDS ORDERED: SODIUM CHLORIDE 0.9% FLUSH 10 ML FLUSH IV FLUSH PRN (04:15)
[2017-09-16] MEDS ORDERED: ONDANSETRON HCL 4 MG/2 ML VIAL IV PUSH PRN ×2 (04:15→18:45)
[2017-09-16] MEDS: SODIUM CHLOR 0.9% 1000 ML INJ 1,000 ML IV SCH ×2 (05:15→13:51)
[2017-09-16 05:56] LABS: CREATINE KINASE 144 U/L (39-308)
[2017-09-16 06:08] LABS: CKMB 2.6 NG/ML (0.5-3.6)
--- NOTE | 2017-09-16 07:49 | HHI.HP ---
[facility] Primary [facility] Physician Non-Staff Admission Diagnosis Chest pain unknown etiology Diagnoses: (1) Chest pain of unknown etiology Chief Complaint: Chest pain Travel History International Travel<30 Days: No Contact w/Intl Traveler <30 Da: No Traveled to Known Affected Are: No History of Present Illness Mr. Morris is a 67-year-old male patient with a known medical history of hyperlipidemia, HTN, borderline DM, and CAD who presented to the ED with complaints of chest pain. Patient states that around 2300 last evening he was in an argument with his when he developed a sudden chest pressure in his midsternal chest, states he felt some radiation up his jawa and neck, rates the pain a 6/10 on pain scale, lasted roughly 15 minutes and then subsided. Does admit to some associated nausea and shortness of breath, no vomiting or diaphoresis. Denies any worsening or relieving factors. He did say that he took an aspirin at home with minimal relief. Denies any recent illness including fever, chills, cough, shortness of breath, ab pain, n/v/d or dysuria. He states he does follow with a color depositing machine tender in [place] with an appointment scheduled for next month. His last angiogram was 2.5 years ago when at that time the patient reports there were some concern for "small blockages" and would be monitored and medically managed with mediation. Denies any tobacco use. No significant family medical history. Review of Systems Constitutional: DENIES: Fever, Chills Eyes: DENIES: Vision loss Ears, nose, mouth, throat: DENIES: Oral lesions Respiratory: DENIES: Cough, Shortness of breath Cardiovascular: COMPLAINS OF: Chest pain Gastrointestinal: COMPLAINS OF: Nausea, DENIES: Abdominal pain, Bloody stools, Constipation, Diarrhea, Vomiting Musculoskeletal: DENIES: Joint pain Hematologic/lymphatic: DENIES: Bruising Immunologic/allergic: DENIES: Eczema Psychiatric: COMPLAINS OF: Anxiety Except as stated in HPI: all other systems reviewed are Neg Past Family Social History Past Medical History Hypertension Hyperlipidemia Borderline DM. Anxiety and depression Asthma Gout GERD Chronic back and neck pain Past Surgical History Rhinoplasty Trigger finger release Right and left knee meniscus repair Bilateral rotator cuff repair Reported Medications Active Hydrocodone-Acetaminophen 5-325 mg Tab 1 Tab PO Q4H PRN Flexeril (Cyclobenzaprine HCl) 10 Mg Tab 10 Mg PO TID Reported Aspirin 81 Mg Chew 81 Mg CHEW DAILY Carvedilol 3.125 Mg Tab 3.125 Mg PO DAILY Plavix (Clopidogrel Bisulfate) 75 Mg Tab 75 Mg PO DAILY Proventil Hfa 6.7 GM Inh (Albuterol Sulfate) 90 Mcg/Act Aer 2 Puff INH Q4-6H PRN Januvia (Sitagliptin Phosphate) 25 Mg Tab 25 Mg PO DAILY Effexor XR 24 HR (Venlafaxine HCl) 150 Mg Cap 150 Mg PO DAILY Allopurinol 300 Mg Tab Unknown Dose PO DAILY Xanax (Alprazolam) 0.5 Mg Tab 0.5 Mg PO TID PRN Mirapex (Pramipexole Dihydrochloride) 0.125 Mg Tab Unknown Dose PO HS Lipitor (Atorvastatin Calcium) 20 Mg Tab 20 Mg PO HS Maxzide-25 (Triamterene-Hydrochlorothiazide) 37.5-25 Mg Tab 1 Tab PO DAILY Benazepril (Benazepril HCl) 40 Mg Tab 40 Mg PO DAILY Allergies: Coded Allergies: ciprofloxacin (Unverified Allergy, Severe, RASH, 09/16/17) Sulfa (Sulfonamide Antibiotics) (Unverified Allergy, Unknown, ITCHY, ) Active Ordered Medications Current Medications Medications (Trade) Dose Ordered Sig/Logan Route Start Time Stop Time Status Last Admin (NS Flush) 2 ml UNSCH PRN IVF 09/16/17 02:00 Sodium Chloride 1,000 ml @ 100 mls/hr Q10H IV 09/16/17 04:12 09/16/17 05:15 (NS Flush) 2 ml UNSCH PRN IV FLUSH 09/16/17 04:15 (NS Flush) 2 ml BID IV FLUSH 09/16/17 09:00 (Zofran Inj) 4 mg Q6H PRN IV PUSH 09/16/17 04:15 (Aspirin) 325 mg DAILY PO 09/16/17 09:00 Family History Denies any significant family medical history. Social History Denies any tobacco use. Admits to occasional alcohol use. Denies any illicit drug use. Physical Exam Vital Signs Vital Signs Date Time Temp Pulse Resp B/P (MAP) Pulse Ox O2 Delivery O2 Flow Rate FiO2 09/16/17 05:47 55 09/16/17 05:14 97 21 09/16/17 04:00 96.4 56 18 171/91 (117) 99 09/16/17 03:59 09/16/17 03:13 55 18 118/62 (80) 98 Room Air 09/16/17 02:10 52 18 120/77 (91) 98 Room Air 09/16/17 02:09 98 09/16/17 02:09 98 Nasal Cannula 2.00 09/16/17 02:07 127/85 (99) 130/75 (93) 09/16/17 00:56 Room Air 09/16/17 00:52 98.3 62 16 127/78 (94) 96 Physical Exam GENERAL: This is a well-nourished, well-developed male patient, lying in bed in no apparent distress. SKIN: No rashes, ecchymoses or lesions. Warm and dry. HEENT: Atraumatic. Normocephalic. Pupils equal round and reactive. Extraocular motions intact. No scleral icterus. No injection or drainage. Nose without bleeding. Throat without erythema, tonsillar hypertrophy or exudate. Uvula midline. Airway patent. NECK: Trachea midline. No JVD. Supple. No carotid bruits present. CARDIOVASCULAR: Regular rate and rhythm without murmurs, gallops, or rubs. No reproducible chest pain to palpation. RESPIRATORY: Clear to auscultation. Breath sounds equal bilaterally. No wheezes , rales, or rhonchi. GASTROINTESTINAL: Abdomen soft, non-tender, nondistended. No guarding. MUSCULOSKELETAL: Extremities without clubbing, cyanosis, or edema. No joint tenderness, effusion, or edema noted. NEUROLOGICAL: Awake and alert. Cranial nerves II through XII intact. Motor and sensory grossly within normal limits. Five out of 5 muscle strength in all muscle groups. Normal speech. Laboratory Laboratory Tests Test 09/16/17 00:45 09/16/17 05:00 White Blood Count 8.2 Red Blood Count 4.54 Hemoglobin 13.8 Hematocrit 43.0 Mean Corpuscular Volume 94.7 Mean Corpuscular Hemoglobin 30.5 Mean Corpuscular Hemoglobin Concent 32.2 Red Cell Distribution Width 14.3 Platelet Count 261 Mean Platelet Volume 8.3 Neutrophils (%) (Auto) 60.1 Lymphocytes (%) (Auto) 26.7 Monocytes (%) (Auto) 7.3 Eosinophils (%) (Auto) 5.4 Basophils (%) (Auto) 0.5 Neutrophils # (Auto) 5.0 Lymphocytes # (Auto) 2.2 Monocytes # (Auto) 0.6 Eosinophils # (Auto) 0.4 Basophils # (Auto) 0.0 CBC Comment DIFF FINAL Differential Comment Prothrombin Time 11.6 Prothromb Time International Ratio 1.0 Activated Partial Thromboplast Time 27.1 Blood Urea Nitrogen 21 Creatinine 1.40 Random Glucose 94 Total Protein 7.4 Albumin 3.8 Calcium Level 8.8 Magnesium Level 1.8 Alkaline Phosphatase 110 Aspartate Amino Transf (AST/SGOT) 32 Alanine Aminotransferase (ALT/SGPT) 43 Total Bilirubin 0.4 Sodium Level 139 Potassium Level 3.6 Chloride Level 102 Carbon Dioxide Level 29.4 Anion Gap 8 Estimat Glomerular Filtration Rate 50 Total Creatine Kinase 179 144 Creatine Kinase MB 3.2 2.6 Troponin I LESS THAN 0.02 LESS THAN 0.02 Result Diagram: 09/16/17 0045 09/16/17 0045 Imaging Last Impressions Chest X-Ray 09/16/17 0155 Signed Impressions: Service Date/Time: Saturday, September 16, 2017 02:16 - CONCLUSION: No acute cardiopulmonary abnormality is identified. MD Mena Cavanaugh VTE Risk Assessment Mena VTE Risk Assessment: Mod/High Risk (score >= 2) Caprini Risk Assessment Model Point Value = 1 Point Value = 2 Point Value = 3 Point Value = 5 Age 41-60 Minor surgery BMI > 25 kg/m2 Swollen legs Varicose veins or History of unexplained or recurrent spontaneous Oral contraceptives or hormone replacement Sepsis (< 1 month) Serious lung disease, including pneumonia (< 1 month) Abnormal pulmonary function Acute myocardial infarction Congestive heart failure (< 1 month) History of inflammatory bowel disease Medical patient at bed rest Age 61-74 Arthroscopic surgery Major open surgery (> 45 min) Laparoscopic surgery (> 45 min) Malignancy Confined to bed (> 72 hours) Immobilizing plaster cast Central venous access Age >= 75 History of VTE Family history of VTE Factor V Leiden Prothrombin [id number] Lupus anticoagulant Anticardiolipin antibodies Elevated serum homocysteine Heparin-induced thrombocytopenia Other congenital or acquired thrombophilia Stroke (< 1 month) Elective arthroplasty Hip, pelvis, or leg fracture Acute spinal cord injury (< 1 month) Prophylaxis Regimen Total Risk Factor Score Risk Level Prophylaxis Regimen 0-1 Low Early ambulation 2 Moderate Order ONE of the following: *Sequential Compression Device (SCD) *Heparin 5000 units SQ BID 3-4 Higher Order ONE of the following medications: *Heparin 5000 units SQ TID *Enoxaparin/Lovenox 40 mg SQ daily (WT < 150 kg, CrCl > 30 mL/min) *Enoxaparin/Lovenox 30 mg SQ daily (WT < 150 kg, CrCl > 10-29 mL/min) *Enoxaparin/Lovenox 30 mg SQ BID (WT < 150 kg, CrCl > 30 mL/min) AND/OR *Sequential Compression Device (SCD) 5 or more Highest Order ONE of the following medications: *Heparin 5000 units SQ TID (Preferred with Epidurals) *Enoxaparin/Lovenox 40 mg SQ daily (WT < 150 kg, CrCl > 30 mL/min) *Enoxaparin/Lovenox 30 mg SQ daily (WT < 150 kg, CrCl > 10-29 mL/min) *Enoxaparin/Lovenox 30 mg SQ BID (WT < 150 kg, CrCl > 30 mL/min) AND *Sequential Compression Device (SCD) Assessment and Plan Problem List: (1) Chest pain of unknown etiology ICD Code: R07.89 - Other chest pain Status: Acute Plan: Patient has been admitted to the chest pain center. Serial EKGs and serial troponins have been ordered for ruling out ACS purposes. First and second troponin flat. Will await last set. EKG reviewed showing NSR heart rate controlled, no presence of any arrhythmias, no ST changes to indicate ischemia. Patient does have some risk factors including previous CAD and intervention reportedly showing some previous blockage. He will undergo a nuclear chemical stress test to rule out any further possibility of ischemia. Will keep NPO at this time. Continue IVF. Started on Aspirin 325mg PO daily. Patient denies any further chest pain or discomfort at this time. He is stable at this time and agreeable to the plan. (2) CAD (coronary artery disease) ICD Code: I25.10 - Atherosclerotic heart disease of [place] coronary artery without angina pectoris Plan: Continue home Plavix. Patient is unaware of why he is on this medication. He denies any previous stent placement. Continue MYAH and Maxide. Will continue and encourage to follow up with PCP and color depositing machine tender upon discharge. Will hold BB for now, heart rate in the 50's. Patient states that this is his baseline. Will resume upon discharge if stress test is negative. (3) [id number] kidney injury ICD Code: N17.9 - Acute kidney failure, unspecified; N18.9 - Chronic kidney disease, unspecified Plan: Continue IVF for hydration. Unsure if this is chronic for patient, creatinine mildly increased, 1.4. Will continue to monitor and recommend outpatient follow up with PCP to follow. (4) Hyperlipidemia ICD Code: E78.5 - Hyperlipidemia, unspecified Plan: Continue home Statins. Assessment and Plan Nuclear stress test results reviewed showing EF 70% with moderate risk. A small area on anterior segment showing mild reversibility. Dr. Baker, [employer] manager color depositing machine tender, has been called and updated. Patient will be transferred to the [facility] for possible cardiac cath. Patient stable at this time and agreeable to the plan. Have attempted to call patient's color depositing machine tender in [place], Dr. Beltran, who has not returned page. Will proceed with following patient and admitting him. Code Status Full code. Discussed Condition With Patient Eloise Roldan STAISH Sep 16, 2017 07:49
[2017-09-16] MEDS ORDERED: ALBUTEROL SULFATE 90 MCG/ACT HFA 8 GM INHALER INH PRN (08:00)
[2017-09-16] MEDS: CLOPIDOGREL 75 MG TAB PO SCH (08:28)
[2017-09-16] MEDS: LISINOPRIL 20 MG TAB PO SCH (08:28)
[2017-09-16] MEDS: ASPIRIN 325 MG TAB PO SCH (08:28)
[2017-09-16] MEDS: VENLAFAXINE HCL XR 75 MG CAP PO SCH (08:28)
[2017-09-16] MEDS: SODIUM CHLORIDE 0.9% FLUSH 10 ML FLUSH IV FLUSH SCH ×2 (08:29→22:39)
[2017-09-16 08:40] LABS: CREATINE KINASE 136 U/L (39-308)
[2017-09-16 08:52] LABS: CKMB 2.6 NG/ML (0.5-3.6)
[2017-09-16] MEDS: TRIAMTERENE/HCTZ 37.5 MG/25 MG TAB PO SCH (09:56)
[2017-09-16] MEDS ORDERED: IOHEXOL 350 MG/ML 50 ML BTL (for Cath Lab) OTHER ONE (11:12)
--- NOTE | 2017-09-16 12:32 | RADRPT ---
EXAM DATE/TIME: 09/16/2017 10:51 [facility] COMPARISON: No previous studies available for comparison. INDICATIONS : Substernal chest pain radiating to left neck with nausea and dyspnea. Angina. DOSE: 27.2 mCi Tc99m Myoview at stress. 8.5 mCi Tc99m Myoview at rest. 0.4 mg Lexiscan STRESS SYMPTOMS: Dyspnea and tiredness. EJECTION FRACTION: 70% MEDICAL HISTORY : Hypercholesterolemia. Gastroesophageal reflux disease. Diabetes mellitus type 2. Hypertension. Asthma . SURGICAL HISTORY : None. ENCOUNTER: Initial ACUITY: 1 day PAIN SCALE: 6/10 LOCATION: Substernal chest TECHNIQUE: The patient underwent pharmacologic stress with infusion of prescribed dose. Continuous ECG tracing was monitored during stress. Gated SPECT imaging was performed after stress and conventional SPECT i maging was performed at rest. The examination was performed on a SPECT/CT scanner, both attenuation and non-corrected datasets were reviewed. FINDINGS: DISTRIBUTION: The maximum perfused segment at stress is in the anteroseptal wall. PERFUSION STUDY: Small area of mild reversibility along the anterior wall. GATED STUDY: There is intact wall motion and thickening without hypokinetic or dyskinetic segments. CONCLUSION: 1. Small area of mild reversibility along the anterior wall otherwise normal perfusion. 2. Normal ejection fraction. RISK CATEGORY: Intermediate (1-3% Annual Mortality Rate) Lucian Garcia MD on September 16, 2017 at 12:28 Board Certified Radiologist. This report was verified electronically.
[2017-09-16] MEDS: ACETAMINOPHEN/HYDROcodone 325 MG/5 MG TAB PO PRN ×2 (14:40→22:38)
--- NOTE | 2017-09-16 14:51 | HHI.DCPOC ---
Discharge Care Plan Diagnosis: (1) CAD (coronary artery disease) (2) Hypertension (3) Chest pain of unknown etiology Your Health Problems Are: Chest Pain Goals to Promote Your Health * To prevent worsening of your condition and complications * To maintain your health at the optimal level Directions to Meet Your Goals Take your medications as prescribed Follow your dietary instruction Follow activity as directed Keep your appointments as scheduled Take your immunizations and boosters as scheduled If your symptoms worsen call your PCP, if no PCP go to Urgent Care Center or Emergency Room Smoking is Dangerous to Your Health. Avoid second hand smoke Call the 24-hour hour crisis hotline for domestic abuse at Eloise Roldan Sep 16, 2017 14:51
--- NOTE | 2017-09-16 16:31 | PD.CONS ---
HPI Consult Requested By Primary Care Physician Non-Staff History of Present Illness 67-year-old male patient with a known medical history of hyperlipidemia, HTN, borderline DM, and CAD who presented to the ED with complaints of chest pain. Patient states that around 2300 last evening he was in an argument with his when he developed a sudden chest pressure in his midsternal chest, states he felt some radiation up his jaw and neck, rates the pain a 6/10 on pain scale , lasted roughly 15 minutes and then subsided. Does admit to some associated nausea and shortness of breath, no vomiting or diaphoresis. Denies any worsening or relieving factors. He did say that he took an aspirin at home with minimal relief. Denies any recent illness including fever, chills, cough, shortness of breath, ab pain, n/v/d or dysuria. He states he does follow with a museum security chief in [place] with an appointment scheduled for next month. His last angiogram was 2.5 years ago when at that time the patient reports there were some concern for "small blockages" and would be monitored and medically managed with mediation. Denies any tobacco use. No significant family medical history.Cardiology consulted given positive stress test. Review of Systems Consitutional: DENIES: Fatigue, Fever, Chills, Weight gain, Weight loss Eyes: DENIES: Amaurosis [place], Change in vision HEENT: DENIES: Lightheadedness, Change in hearing Respiratory: COMPLAINS OF: See HPI, DENIES: Cough, Snoring, Shortness of breath , Wheezing, Sputum production Cardiovascular: COMPLAINS OF: See HPI, Chest pain, DENIES: Palpitations, Syncope, Tachycardia Gastrointestinal: DENIES: Nausea, Vomiting, Change in bowel habits, Reflux, Bloody stools, Melena Genitourinary: DENIES: Urinary incontinence, Difficulty voiding Integumentary: DENIES: Rash Neurologic: DENIES: Tingling or numbness, Memory problems, Poor Balance, Stroke symptoms Musculoskeletal: DENIES: Joint pain, Muscle pain, Limited range of motion, Back pain Psychiatric: DENIES: Anxiety, Depression, Sleep disturbances Hematologic: DENIES: Bruising tendencies, Bleeding tendencies Endocrine: DENIES: Weight gain, Weight loss, Thyroid disease Past Family Social History Allergies: Coded Allergies: ciprofloxacin (Unverified Allergy, Severe, RASH, 09/16/17) Sulfa (Sulfonamide Antibiotics) (Unverified Allergy, Unknown, ITCHY, ) Past Medical History PFSH Past Family Social History Past Medical History Hypertension Hyperlipidemia Borderline DM. Anxiety and depression Asthma Gout GERD Chronic back and neck pain Past Surgical History Rhinoplasty Trigger finger release Right and left knee meniscus repair Bilateral rotator cuff repair . Reported Medications Reported Meds & Active Scripts Active Hydrocodone-Acetaminophen 5-325 mg Tab 1 Tab PO Q4H PRN Flexeril (Cyclobenzaprine HCl) 10 Mg Tab 10 Mg PO TID Reported Aspirin 81 Mg Chew 81 Mg CHEW DAILY Carvedilol 3.125 Mg Tab 3.125 Mg PO DAILY Plavix (Clopidogrel Bisulfate) 75 Mg Tab 75 Mg PO DAILY Proventil Hfa 6.7 GM Inh (Albuterol Sulfate) 90 Mcg/Act Aer 2 Puff INH Q4-6H PRN Januvia (Sitagliptin Phosphate) 25 Mg Tab 25 Mg PO DAILY Effexor XR 24 HR (Venlafaxine HCl) 150 Mg Cap 150 Mg PO DAILY Allopurinol 300 Mg Tab Unknown Dose PO DAILY Xanax (Alprazolam) 0.5 Mg Tab 0.5 Mg PO TID PRN Mirapex (Pramipexole Dihydrochloride) 0.125 Mg Tab Unknown Dose PO HS Lipitor (Atorvastatin Calcium) 20 Mg Tab 20 Mg PO HS Maxzide-25 (Triamterene-Hydrochlorothiazide) 37.5-25 Mg Tab 1 Tab PO DAILY Benazepril (Benazepril HCl) 40 Mg Tab 40 Mg PO DAILY Active Ordered Medications Current Medications Medications (Trade) Dose Ordered Sig/Logan Route Start Time Stop Time Status Last Admin (NS Flush) 2 ml UNSCH PRN IVF 09/16/17 02:00 Sodium Chloride 1,000 ml @ 100 mls/hr Q10H IV 09/16/17 04:12 09/16/17 05:15 (NS Flush) 2 ml UNSCH PRN IV FLUSH 09/16/17 04:15 (NS Flush) 2 ml BID IV FLUSH 09/16/17 09:00 (Zofran Inj) 4 mg Q6H PRN IV PUSH 09/16/17 04:15 (Aspirin) 325 mg DAILY PO 09/16/17 09:00 09/16/17 08:28 (Proair Hfa Inh) 2 puff BID PRN INH 09/16/17 08:00 (Lipitor) 20 mg HS PO 09/16/17 21:00 (Plavix) 75 mg DAILY PO 09/16/17 09:00 09/16/17 08:28 (Maxzide 37.5-25 Mg) 1 tab DAILY PO 09/16/17 09:00 09/16/17 09:56 (Effexor Xr) 150 mg DAILY PO 09/16/17 09:00 09/16/17 08:28 (Prinivil) 40 mg DAILY PO 09/16/17 09:00 09/16/17 08:28 ([place] 5-325 Mg) 1 tab Q4H PRN PO 09/16/17 15:00 09/16/17 14:40 Family History Denies any significant family medical history. Social History Denies any tobacco use. Admits to occasional alcohol use. Denies any illicit drug use Physical Exam Vital Signs Vital Signs Date Time Temp Pulse Resp B/P (MAP) Pulse Ox O2 Delivery O2 Flow Rate FiO2 09/16/17 15:00 56 09/16/17 12:00 97.7 75 16 114/66 (82) 97 09/16/17 11:31 98 09/16/17 08:15 50 09/16/17 08:00 98.0 53 18 163/88 (113) 96 09/16/17 05:47 55 09/16/17 05:14 97 21 09/16/17 04:00 96.4 56 18 171/91 (117) 99 09/16/17 03:59 09/16/17 03:13 55 18 118/62 (80) 98 Room Air 09/16/17 02:10 52 18 120/77 (91) 98 Room Air 09/16/17 02:09 98 09/16/17 02:09 98 Nasal Cannula 2.00 09/16/17 02:07 127/85 (99) 130/75 (93) 09/16/17 00:56 Room Air 09/16/17 00:52 98.3 62 16 127/78 (94) 96 Physical Exam GENERAL: Well-nourished, well-developed patient. SKIN: Warm and dry. HEAD: Normocephalic. EYES: No scleral icterus. No injection or drainage. NECK: Supple, trachea midline. No JVD or lymphadenopathy. CARDIOVASCULAR: Regular rate and rhythm without murmurs, gallops, or rubs. RESPIRATORY: Breath sounds equal bilaterally. No accessory muscle use. GASTROINTESTINAL: Abdomen soft, non-tender, nondistended. EXTREMITIES: No cyanosis, or edema. NEUROLOGICAL: Awake, alert, and oriented x 3. Non-focal. Laboratory Laboratory Tests Test 09/16/17 00:45 09/16/17 05:00 09/16/17 08:10 09/16/17 09:45 White Blood Count 8.2 Red Blood Count 4.54 Hemoglobin 13.8 Hematocrit 43.0 Mean Corpuscular Volume 94.7 Mean Corpuscular Hemoglobin 30.5 Mean Corpuscular Hemoglobin Concent 32.2 Red Cell Distribution Width 14.3 Platelet Count 261 Mean Platelet Volume 8.3 Neutrophils (%) (Auto) 60.1 Lymphocytes (%) (Auto) 26.7 Monocytes (%) (Auto) 7.3 Eosinophils (%) (Auto) 5.4 Basophils (%) (Auto) 0.5 Neutrophils # (Auto) 5.0 Lymphocytes # (Auto) 2.2 Monocytes # (Auto) 0.6 Eosinophils # (Auto) 0.4 Basophils # (Auto) 0.0 CBC Comment DIFF FINAL Differential Comment Prothrombin Time 11.6 Prothromb Time International Ratio 1.0 Activated Partial Thromboplast Time 27.1 Blood Urea Nitrogen 21 Creatinine 1.40 Random Glucose 94 Total Protein 7.4 Albumin 3.8 Calcium Level 8.8 Magnesium Level 1.8 Alkaline Phosphatase 110 Aspartate Amino Transf (AST/SGOT) 32 Alanine Aminotransferase (ALT/SGPT) 43 Total Bilirubin 0.4 Sodium Level 139 Potassium Level 3.6 Chloride Level 102 Carbon Dioxide Level 29.4 Anion Gap 8 Estimat Glomerular Filtration Rate 50 Total Creatine Kinase 179 144 136 Creatine Kinase MB 3.2 2.6 2.6 Troponin I LESS THAN 0.02 LESS THAN 0.02 LESS THAN 0.02 Result Diagram: 09/16/17 0045 09/16/17 0045 Imaging Last Impressions Chest X-Ray 09/16/17 0155 Signed Impressions: Service Date/Time: Saturday, September 16, 2017 02:16 - CONCLUSION: No acute cardiopulmonary abnormality is identified. Devin Umanzor MD Myocardial Perfusion Scan Nuc Med 09/16/17 0000 Signed Impressions: Service Date/Time: Saturday, September 16, 2017 10:51 - CONCLUSION: 1. Small area of mild reversibility along the anterior wall otherwise normal perfusion. 2. Normal ejection fraction. RISK CATEGORY: Intermediate (1-3%% Annual Mortality Rate) Lucian Garcia MD Assessment and Plan Problem List: (1) CAD (coronary artery disease) ICD Codes: I25.10 - Atherosclerotic heart disease of [place] coronary artery without angina pectoris Plan: chest pain. known CAD. positive stress test Recommend: LHC +/- PCI Risk benefits to LHC +/- PCI including but not limites to neurovascular trauma, infection, bleeding, AMARILIS, stroke, emergent CABG and have been explained to patient. He understands risks and with willing to proceed. Further management to be determine (2) Chest pain of unknown etiology ICD Codes: R07.89 - Other chest pain Status: Acute (3) Hyperlipidemia ICD Codes: E78.5 - Hyperlipidemia, unspecified (4) Hypertension ICD Codes: I10 - Essential (primary) hypertension Carlos Eduardo Elliott MD Sep 16, 2017 16:31
--- NOTE | 2017-09-16 16:31 | TR ---
Date Performed: 09/16/2017 Time Performed: 11:24:40 DOCTOR: Ned De Paz DRUG LIST: CLINICAL HISTORY: REASON FOR TEST: REASON FOR ENDING: OBSERVATION: CONCLUSION: Lexiscan stress test was performed under standard four minute protocol. Radionuclide was injected one minute prior to ending the test. No electrocardiographic abormalities were present to suggest ischemia. Nuclear imaging and interpretation are pending. COMMENTS:
[2017-09-16 16:44] LABS: HDL CHOLESTEROL 45.8 MG/DL (40.0-60.0)
[2017-09-16] MEDS ORDERED: HEPARIN-NS/PF INJ 1,000 ML ONE (18:11)
[2017-09-16] MEDS ORDERED: MIDAZOLAM HCL 2 MG/2 ML VIAL ONE (18:21)
--- NOTE | 2017-09-16 18:38 | CATHPROC ---
[facility] HIS Report Study Information Study Number Admission Scheduled Start Study Start [id number] Sep 16 2017 3:31AM 09/16/2017 Sep 16 2017 6:07PM [place] [facility] Cardiac Catheterization Admit Source Facility Department Emergency department [facility] - [facility] [facility] Physician and Clinical Staff Initial Carlos Eduardo Gonsales Drafter Electromechanical Mary Jo Negrete,RN Drafter Electromechanical Chuck Colbert,PAULA Recorder Leesa Walton RT(R) (BS) Scrub Raj Newell RCIS(BS) Procedures Performed Procedure Location (Site) Vessel Name Coronary Angiograms LCA Left Coronary Coronary Angiograms RCA Right Coronary L Heart Cath LV Gram-hand inj. LV LV Ventricle Equipment Time Automotive Artist Description Size Mfg Part Number Used/Scraped PERCLOSE, PRO GLIDE CLOSER 18:30 [employer] FR 6 [id number] *[id number] Used DEVICE TRANSDUCER, TRUWAVE [id number] 18:14 SRINIVASAN ESPINOSA * Used W/STOCKCOCK *[id number] INTRODUCER SET, 18:14 [employer] FR 5 [id number] *[id number] Used MICROPUNCTURE, STIFFENED [id number] *[id number] *[id number] 18:14 [employer]ros [employer]RIES PACK, CCL CUSTOM * Used *[id number] 18:14 5to1 MEDICAL WIRE, 3MMJ .035 180CM 180CM Used *[id number] 18:14 NAMIC MANIFOLD, 4 PORT * Used *[id number] 18:14 NYCOMED OMNIPAQUE, 350 MG, 150ML 150ML [id number] Used [id number] 18:14 [employer] BLANKET,WARM AIR CCL * Used *[id number] 18:14 TERUMO MEDICAL SHEATH, FR5 TERUMO (10CM) FR 5 Used *[id number] 18:24 TERUMO MEDICAL SHEATH, FR6 TERUMO (10CM) FR 6 Used *[id number] History: Current Medications Medication Dosage/Unit Route Frequency Last Date/Time Taken Statins (any) Beta Juancho ASA PLAVIX LISINOPRIL History: Allergies Allergy Reaction Sulfa (Sulfonamide Antibiotics) ITCHY ciprofloxacin RASH History: Risk Factors Family History of Hypertension Dyslipidemia Previous [place] Previous Heart Failure Premature CAD Yes Yes No No No Prior Valve Prior PCI Prior CABG Surgery No No No Cerebrovascular Peripheral Artery Chronic Lung On Dialysis Diabetes Diabetes Therapy Disease Disease Disease No No No No Yes Oral History: Stress Tests Stress or Imaging Studies Performed Yes Standard Exercise Stress Test No Stress Echo No Stress Test SPECT Stress Test SPECT Result Stress Test SPECT Ischemia Risk/Extent Yes Positive Intermediate Stress Test CMR No Cardiac CTA Coronary Calcium Score No No History: Other Current Smoker No Labs Hgb (g/dl) Hct (%) WBC (l/cumm) Platelets (thousands) 11.60-17.00 35.00-51.00 4.00-11.00 150.00-450.00 13.8 43 8.2 261 Glucose (mg/dl) BUN (mg/dl) Creatinine (mg/dl) BUN:Creatinine (1:x) 74.00-106.00 7.00-18.00 0.50-1.30 10.00-20.00 94 21 1.4 15 Na (meq/l) K (meq/l) 136.00-145.00 3.50-5.10 139 3.6 INR (PTT:PT) 0.90-1.10 1 Troponin I (ng/ml) CPK (u/l) CPK-MB (ng/ML) 0.02-0.05 26.00-308.00 0.50-3.60 0.02 163 2.6 Medication Medication Total Dose (Bolus/Oral) Medication Total Dosage/Unit 1% XYLOCAINE 20 mL FENTANYL 50 mcg VERSED 2 mg Medications (Bolus/Oral) Medication Time Given Dosage/Unit Administered By Reason 1% XYLOCAINE 09/16/2017 6:20:07 PM 20 mL Carlos Eduardo Elliott 20 mL 1% XYLOCAINE given in lab by Carlos Eduardo Elliott in Right Groin via Subcutaneous. VERSED 09/16/2017 6:22:21 PM 2 mg Mary Jo Negrete 2 mg VERSED given in lab by Mary Jo Negrete, RN in Left Antecubital via Peripheral IV. FENTANYL 09/16/2017 6:23:32 PM 50 mcg Mary Jo Negrete 50 mcg FENTANYL given in lab by Mary Jo Negrete, RN in Left Antecubital via Peripheral IV. Medication (Drip) Medication Time Given Dosage/Unit Concentration/Unit Diluent (ml) Solution IV Solutions 09/16/2017 6:17:49 PM 0 mL (IV) 500 NaCl .9 IV Solutions given in lab by Mary Jo Negrete, RN in Right Antecubital via Peripheral IV. Pump/Drip Fl ow = 30 ml/hr using NaCl .9. Initial Case Assessment Cardiovascular HR Rhythm NIBP Chest Pain 75 reg 159/93 0 Edema Present Skin color Skin None Normal Warm Dry Circulatory - Right Pulses Dorsalis Pedis Femoral 1 2 Scale (0,1,2,3,4,d) Circulatory - Left Pulses Dorsalis Pedis Femoral 1 2 Scale (0,1,2,3,4,d) Circulatory - Lower Extremities Color Lower Right Color Lower Left Normal Normal Neurological State Oriented to time-place- Alert Moves all extremities person Respiration - General Respiration Rate SpO2 (%) (B/min) 18 99 Chronological Log Time Study Chronological Log 18:06:40 Patient arrived via Bed. 18:06:41 Patient Name, D.O.B, / Armband Verified By R.N. 18:06:41 Consent signed by the physician and the patient and verified by the [employer] staff. 18:06:42 Pre-op and post- op instructions given; patient acknowledges understanding of instructions. 18:06:43 Verbal Stimulation=2 Physical Stimulation=2 Airway=2 Respiration=2 TOTAL=8. (0=absent, 1=li mited, 2=present) 18:06:43 Presedation assessment performed by [employer] Repairer RN. 18:06:44 Immediate Presedation assesment performed by physician. 18:06:45 Patient has been NPO for More than 6Hrs. 18:06:45 Skin Breakdown none per pt 18:06:46 Patient Warmer Placed on the Table. 18:06:48 Tabby Prominences Protected 18:06:49 A # 20 IV was noted in the Antecubital (left). Grade = 0 18:06:50 History and physical on the chart or being dictated. Vitals capture started with the following parameters, Patient=Adult, Interval=5 min, Initial Pr gxwegu=732 mmHg, 18:09:26 Deflation Rate=5 mmHg, Cuff placed on Left Arm 18:10:32 HR=73 bpm, MRCC=833/93 mmhg, SpO2=99.0 %, Resp=16 B/min, Pain=0, Mar=10, Lopez=2 Assessment: Initial Case, HR=75 BPM, Rhythm=reg, GSQE=410/93 mmhg, Chest Pain=0, Edema=None, Co perry=Normal, Skin = Warm, Dry Right Pulses: Navid Ped=1, Femoral=2 Left Pulses: Navid Ped=1, Femoral=2 18:13:55 Lower Right Extremities: Color=Normal Lower Left Extremities: Color=Normal Neurological: State=Alert, Ox3, CAMACHO Respiration: Resp=18 B/min, SpO2=99 % 18:14:05 Bilateral groins prepped with 2% chlorhexidine, and draped after a 3 minute waiting time. 18:15:04 HR=66 bpm, ISID=161/100 mmhg, SpO2=99.0 %, Resp=18 B/min, Pain=0, Mar=10, Lopez=2 18:15:58 Reference ECG taken IV Solutions given in lab by Mary Jo Negrete, PAULA in Right Antecubital via Peripheral IV. Pump/D rip Flow = 30 ml/hr 18:17:49 using NaCl .9. Time Out. Correct patient, correct procedure, correct physician, power injector loaded, or not loaded with contrast with 18:18:56 surgical team present. Time Out Concurred by MD and individual staff in procedure. 18:19:10 Case Start 18:20:05 HR=71 bpm, NHFV=003/92 mmhg, SpO2=99.0 %, Resp=17 B/min, Pain=0, Mar=10, Lopez=2 18:20:07 20 mL 1% XYLOCAINE given in lab by Carlos Eduardo Elliott in Right Groin via Subcutaneous. 18:20:45 Pressure channel 1 zeroed. 18:22:21 2 mg VERSED given in lab by Mary Jo Negrete, PAULA in Left Antecubital via Peripheral IV. 18:22:53 Access site was Right Femoral Artery. 18:23:32 50 mcg FENTANYL given in lab by Mary Jo Negerte, PAULA in Left Antecubital via Peripheral IV. A INTRODUCER SET, MICROPUNCTURE, STIFFENED FR 5 was advanced into the Fem Art (right) using the 18:23:51 Percutaneous technique. A SHEATH, FR6 TERUMO (10CM) FR 6 was exchanged in the Fem Art (right). This was necessary in or hayes to 18:23:57 accomodate a larger catheter. A JL 4.0 INFINITI CATHETER FR 5 was advanced over a wire. OMNIPAQUE, 350 MG, 150ML 150ML was us ed for 18:24:20 injections. Recorded Pressure: LV, HR=80, Condition=Condition 1 18:24:50 (Left Ventricle) LV 169/13/16 18:25:02 HR=75 bpm, TTGC=369/96 mmhg, SpO2=98.0 %, Resp=14 B/min, Pain=0, Mar=10, Lopez=2 18:25:19 The LV was manually injected with 8 cc's and visualized. OMNIPAQUE, 350 MG, 150ML 150ML use d. Recorded Pressure: LV, Ao, HR=82, Condition=Condition 1 18:25:34 (Left Ventricle) LV 171/10/23, (Aorta) Ao 177/83/124 18:26:05 The RCA was injected and visualized at various angles. OMNIPAQUE, 350 MG, 150ML 150ML use d. 18:26:16 Catheter was removed A JL 4.0 INFINITI CATHETER FR 5 was advanced over a wire. OMNIPAQUE, 350 MG, 150ML 150ML was u sed for 18:26:19 injections. 18:27:26 The LCA was injected and visualized at various angles. OMNIPAQUE, 350 MG, 150ML 150ML use d. 18:28:37 Catheter was removed 18:30:07 HR=74 bpm, JXSY=215/86 mmhg, SpO2=98.0 %, Resp=19 B/min, Pain=0, Mar=10, Lopez=2 18:30:14 PERCLOSE, PRO GLIDE CLOSER DEVICE FR 6 placement in the Fem Art (right) 18:31:39 Case End 18:31:50 Catheter(s) removed without difficulty 18:32:42 No case complications noted. 18:32:48 Bedside Report will be given. 18:32:50 Implantable Device card placed in patient's chart. 18:32:53 A Left Heart Cath was performed. 18:35:00 HR=66 bpm, SLBV=769/91 mmhg, SpO2=98.0 %, Resp=19 B/min, Pain=0, Mar=10, Lopez=2 18:37:09 Vitals capture stopped. 18:39:15 Patient moved to [facility] End Study - Contrast Media Used In Study Contrast Total Opened (mL) Total Used (mL) Total Wasted (mL) Omnipaque 25 25 0 End Study - Maximum Contrast Load Max Contrast Load (mL) 282.5 End Study - Radiation Exposure Fluoro Time (minutes) 2.2 End Study - Sheaths Sheaths Pulled By Sheath Hold Time (min) Carlos Eduardo Elliott End Study - Patient Disposition Complications Transferred To Interventional Outcome No Telemetry Bed No attempt made
[2017-09-16] MEDS ORDERED: ATROPINE SULFATE 1 MG/ML VIAL IV PUSH PRN (18:45)
[2017-09-16] MEDS ORDERED: MISC INFORMATION XX ONE (18:45)
--- NOTE | 2017-09-16 19:09 | MA ---
cc: MAYNORSAMANTHA Vincent DATE 09/16/2017 DATE OF 1950 PROCEDURE PERFORMED 1. Left heart catheterization. 2. Selective right and left coronary angiography. 3. Left ventriculogram. 4. Selective right common femoral artery angiography. INDICATIONS Chest pain. Positive stress test. DESCRIPTION OF PROCEDURE Consent signed. The patient was prepped and draped in sterile fashion. Using 1 % lidocaine for local anesthesia and a micropuncture kit, a 6-Khmer sheath was inserted into the right common femoral artery. Right common femoral artery angiography was performed to confirm position of the sheath, then selective right and left coronary angiography was performed with a JR 4 and JL-4 diagnostic catheters. Angiography was taken in multiple views. Then the JR-4 diagnostic catheter was introduced into the left ventricle over a wire. It was followed by pressure recordings, left ventriculogram and pullback. The patient tolerated the procedure well without complications. Estimated blood loss less than 30 mL. Total contrast 25 mL. The right groin access site was closed with a Perclose device. RESULTS Left ventricle. The left ventricular pressure was 171/10 with an LVEDP of 23. The aortic pressure was 177/83 with a mean of 124. Left ventriculogram revealed a symmetrically chuck ventricle with an estimated ejection fraction of 60%. There was no gradient upon pullback from the left ventricle to aorta. ANGIOGRAPHIC RESULTS 1. Right coronary artery. The right coronary artery is a vessel. It has minimal luminal irregularities throughout. It has a 10% lesion proximally and a 5% lesion distally. It is giving off the PDA and posterolateral branch both which are patent with KIRIT III flow and nonobstructive coronary artery disease. 2. The left main is patent. It is giving off the left circumflex artery and the LAD. 3. The LAD is a transapical vessel. It is tortuous giving off two small diagonal vessels. 4. The left circumflex artery is mainly composed of one OM branch. The AV groove of the circumflex is free. It is very small. This OM1 vessel bifurcates at the distal left circumflex. It is patent with KIRIT III flow and nonobstructive coronary artery disease. RESULTS 1. Nonobstructive coronary artery disease. 2. Preserved left ventricular systolic function with estimated ejection fraction of 60%. 3. Elevated LVEDP. RECOMMENDATIONS Continue aggressive medical management for primary prevention of CAD as well as therapeutic lifestyle changes. The patient should followup with cardiology upon discharge. MD LEATHA Matthews/AJITH /6:36 PM /6:58 PM JOSE
[2017-09-16] MEDS ORDERED: ATORVASTATIN 20 MG TAB PO SCH (21:00)
--- NOTE | 2017-09-16 22:04 | EKG ---
Date Performed: 09/16/2017 Time Performed: 09:57:00 PTAGE: 67 years EKG: SINUS BRADYCARDIA NONSPECIFIC T-WAVE ABNORMALITY ABNORMAL ECG PREVIOUS TRACING : 09/16/2017 05.05 Compared to prior tracing no significant change DOCTOR: Shayne Wade Interpretating Date/Time 09/16/2017 22:04:19
--- NOTE | 2017-09-16 22:14 | EKG ---
Date Performed: 09/16/2017 Time Performed: 05:05:24 PTAGE: 67 years EKG: SINUS BRADYCARDIA NONSPECIFIC T-WAVE ABNORMALITY BORDERLINE ECG PREVIOUS TRACING : 01/20/2017 22.09 Compared to the previous tracing sinus bradycardia is new DOCTOR: Shayne Wade Interpretating Date/Time 09/16/2017 22:13:15
--- NOTE | 2017-09-16 22:20 | EKG ---
Date Performed: 09/16/2017 Time Performed: 00:49:08 PTAGE: 67 years EKG: Sinus rhythm NONSPECIFIC T-WAVE ABNORMALITY BORDERLINE ECG NO PREVIOUS TRACING DOCTOR: Shayne Wade Interpretating Date/Time 09/16/2017 22:18:55
[2017-09-16] MEDS ORDERED: PRAMIPEXOLE DIHYDROCHLORIDE 0.25 MG TAB PO SCH (23:30)
[2017-09-17] VITALS (13 sets, daily range): BP systolic 103–131; BP diastolic 58–80; PULSE 50–64; RESP 16; TEMP 97.5; O2SAT 97–98
[2017-09-17] MEDS: SODIUM CHLOR 0.9% 1000 ML INJ 1,000 ML IV SCH ×2 (00:12→10:12)
[2017-09-17] MEDS: ALPRAZolam 0.5 MG TAB PO PRN ×2 (00:27→09:02)
[2017-09-17] MEDS: SODIUM CHLORIDE 0.9% FLUSH 10 ML FLUSH IV FLUSH SCH (09:00)
[2017-09-17] MEDS: VENLAFAXINE HCL XR 75 MG CAP PO SCH (09:02)
[2017-09-17] MEDS: CLOPIDOGREL 75 MG TAB PO SCH (09:03)
[2017-09-17] MEDS: ASPIRIN 325 MG TAB PO SCH (09:03)
[2017-09-17] MEDS: LISINOPRIL 20 MG TAB PO SCH (09:04)
[2017-09-17] MEDS: TRIAMTERENE/HCTZ 37.5 MG/25 MG TAB PO SCH (09:04)
--- NOTE | 2017-09-17 09:53 | HHI.PR ---
Subjective Remarks No chest pain shortness of breath or other complaints. Hoping to go home. Objective Vitals Vital Signs Date Time Temp Pulse Resp B/P (MAP) Pulse Ox O2 Delivery O2 Flow Rate FiO2 09/17/17 07:44 97.5 54 16 131/80 (97) 98 09/17/17 07:29 98 21 09/17/17 07:00 54 09/17/17 06:00 54 09/17/17 05:00 50 09/17/17 04:00 52 09/17/17 03:00 56 09/17/17 03:00 54 16 103/58 (73) 97 09/17/17 02:00 64 09/17/17 01:00 58 09/17/17 00:00 54 09/16/17 23:00 63 09/16/17 23:00 54 18 109/53 (71) 96 09/16/17 22:00 64 09/16/17 21:00 62 09/16/17 20:00 54 09/16/17 19:35 97.1 58 16 148/92 (110) 97 09/16/17 19:35 60 09/16/17 16:00 98.1 54 18 174/85 (114) 96 09/16/17 15:00 56 09/16/17 12:00 97.7 75 16 114/66 (82) 97 09/16/17 11:31 98 I/O 09/16/17 09/16/17 09/16/17 09/17/17 09/17/17 09/17/17 07:00 15:00 23:00 07:00 15:00 23:00 Intake Total 620 ml 200 ml Output Total 750 ml Balance 620 ml -550 ml Intake Oral 120 ml 200 ml IV Total 500 ml Output Urine Total 750 ml # Voids 1 # Bowel Movements 0 0 Result Diagram: 09/16/17 0045 09/16/17 0045 Objective Remarks GENERAL: Well-nourished, well-developed pleasant male patient. SKIN: Warm and dry. HEAD: Normocephalic. EYES: No scleral icterus. No injection or drainage. NECK: Supple, trachea midline. No JVD or lymphadenopathy. CARDIOVASCULAR: Regular rate and rhythm without murmurs, gallops, or rubs. RESPIRATORY: Breath sounds equal bilaterally. No accessory muscle use. GASTROINTESTINAL: Abdomen soft, non-tender, nondistended. EXTREMITIES: No cyanosis, or edema. NEUROLOGICAL: Awake, alert, and oriented x 3. Non-focal. A/P Problem List: (1) Chest pain of unknown etiology ICD Code: R07.89 - Other chest pain Status: Acute (2) CAD (coronary artery disease) ICD Code: I25.10 - Atherosclerotic heart disease of [place] coronary artery without angina pectoris (3) [id number] kidney injury ICD Code: N17.9 - Acute kidney failure, unspecified; N18.9 - Chronic kidney disease, unspecified (4) Hyperlipidemia ICD Code: E78.5 - Hyperlipidemia, unspecified Assessment and Plan -Chest pain with positive exercise stress test. Left heart catheterization yesterday with Dr. Baker showed nonobstructive coronary artery disease and normal left ventricular ejection fraction. Medical management is recommended. Patient is on aspirin, statin. -Acute versus chronic kidney disease. Mild creatinine 1.4. -Borderline diabetes on diet control. -Hypertension. Patient to be discharged home and continue on home medications. Follow-up with cardiology one week. Doris Godinez MD Sep 17, 2017 09:53
== END 2017-09-17 11:48 | disposition home or self-care (01) | DRG 287 ==
LOC: PHED 00:39 → PHEDA 03:31 → PH3A 04:14 → OBSVTOIN 15:05 → HCIS 17:41
PROVIDERS: ADMIT Family Medicine; ATTEND Family Medicine
PROC: 4A023N7 Measurement of Cardiac Sampling and Pressure, Left Heart, Percutaneous Approach (ICD-10-PCS; principal; 2017-09-16)
PROC: B2111ZZ Fluoroscopy of Multiple Coronary Arteries using Low Osmolar Contrast (ICD-10-PCS; 2017-09-16)
PROC: B2151ZZ Fluoroscopy of Left Heart using Low Osmolar Contrast (ICD-10-PCS; 2017-09-16)
PROC: B41F1ZZ Fluoroscopy of Right Lower Extremity Arteries using Low Osmolar Contrast (ICD-10-PCS; 2017-09-16)
DX: I25.10 Atherosclerotic heart disease of native coronary artery without angina pectoris (principal); N17.9 Acute kidney failure, unspecified; E11.22 Type 2 diabetes mellitus with diabetic chronic kidney disease; N18.9 Chronic kidney disease, unspecified; E78.5 Hyperlipidemia, unspecified; G25.81 Restless legs syndrome; I12.9 Hypertensive chronic kidney disease with stage 1 through stage 4 chronic kidney disease, or unspecified chronic kidney disease; J45.909 Unspecified asthma, uncomplicated; K21.9 Gastro-esophageal reflux disease without esophagitis; M10.9 Gout, unspecified; Z79.82 Long term (current) use of aspirin; Z87.442 Personal history of urinary calculi; Z96.652 Presence of left artificial knee joint; F32.9 Major depressive disorder, single episode, unspecified; F41.9 Anxiety disorder, unspecified; M54.2 Cervicalgia; M54.9 Dorsalgia, unspecified; G89.29 Other chronic pain; Z79.01 Long term (current) use of anticoagulants
CPT/HCPCS: 71020; 78452; 80053; 80061; 82550; 82552; 83735; 84484; 85025; 85610; 85730; 93005; 93017; 93458; 99152; A9502; C1760; C1769; C1893; G0269; J1644; J2250; J2785; J3010; J7030; J7040; Q9967

== ENCOUNTER → 2017-11-22 | Outpatient (CLI) | payer MEDICARE, OTHER ==
[~2017-11-22] MED LIST changes: +ALBUAER3 INH; +MIRA0.75 PO
[2017-11-22 11:56] LABS: AUTOMATED NEUTROPHIL # 5.5 TH/MM3 (1.8-7.7); BASOPHIL # 0.1 TH/MM3 (0-0.2); BASOPHIL % 0.8 % (0.0-2.0); EOSINOPHIL # 0.3 TH/MM3 (0-0.4); EOSINOPHIL % 3.4 % (0.0-4.0); HEMATOCRIT 42.1 % (39.0-51.0); HEMOGLOBIN 14.4 GM/DL (13.0-17.0); LYMPH % 23.2 % (9.0-44.0); MEAN CELL VOLUME 92.6 FL (80.0-100.0); MEAN CORPUSCULAR HEMOGLOBIN 31.7 PG (27.0-34.0); MEAN CORPUSCULAR HGB CONC 34.2 % (32.0-36.0); MEAN PLATELET VOLUME 7.7 FL (7.0-11.0); MONO % 7.7 % (0.0-8.0); MONOCYTE # 0.6 TH/MM3 (0-0.9); NEUT % 64.9 % (16.0-70.0); PLATELET COUNT 268 TH/MM3 (150-450); RED BLOOD COUNT 4.54 MIL/MM3 (4.50-5.90); RED CELL DISTRIBUTION WIDTH 14.8 % (11.6-17.2); WHITE BLOOD COUNT 8.4 TH/MM3 (4.0-11.0)
[2017-11-22 11:58] LABS: BILIRUBIN, URINE NEG (NEG); BLOOD, URINE NEG (NEG); GLUCOSE,URINE NEG (NEG); KETONE, URINE NEG (NEG); NITRITE,URINE NEG (NEG); URINE COLOR YELLOW (YELLW/STRAW); URINE LEUKOCYTE ESTERASE NEG (NEG)
[2017-11-22 12:03] LABS: INTERNATIONAL NORMALIZED RATIO 1.1 RATIO; PROTHROMBIN TIME - PATIENT 10.7 SEC (9.8-11.6)
[2017-11-22 12:21] LABS: BICARBONATE 34.4 MEQ/L (21.0-32.0); CALCIUM 9.2 MG/DL (8.5-10.1); CREATININE 1.3 MG/DL (0.60-1.30)
--- NOTE | 2017-11-22 12:52 | RADRPT ---
EXAM DATE/TIME: 11/22/2017 11:14 [facility] COMPARISON: CHEST PA & LAT, September 16, 2017, 2:16. INDICATIONS : Evaluate for pneumonia, pneumothorax, or communicable disease. Pre-op for knee surgery. MEDICAL HISTORY : Diabetes mellitus type II. Renal calculi. Gastroesophageal reflux disease. SURGICAL HISTORY : None. ENCOUNTER: Initial ACUITY: 1 day PAIN SCORE: 0/10 LOCATION: Bilateral chest FINDINGS: PA and lateral views of the chest demonstrate the lungs to be symmetrically aerated without evidence of mass, infiltrate or effusion. There is eventration of the right hemidiaphragm. The cardiomediastin al contours are unremarkable. Osseous structures are intact. CONCLUSION: 1. No acute cardiopulmonary findings identified. Stable compared to prior dated 09/16/17. Prince Dang MD on November 22, 2017 at 11:32 Board Certified Radiologist. This report was verified electronically.
--- NOTE | 2017-11-22 20:31 | EKG ---
Date Performed: 11/22/2017 Time Performed: 10:28:42 PTAGE: 67 years EKG: Sinus rhythm NONSPECIFIC T-WAVE ABNORMALITY BORDERLINE ECG Since the prior tracing, there has been no significant change NO PREVIOUS TRACING DOCTOR: Hunter Pope Interpretating Date/Time 11/22/2017 20:22:28
== END ==
LOC: CPRE 10:06
PROVIDERS: ATTEND Orthopaedic Surgery Sports Medicine
DX: Z01.812 Encounter for preprocedural laboratory examination (principal); Z01.811 Encounter for preprocedural respiratory examination; Z01.810 Encounter for preprocedural cardiovascular examination; M79.609 Pain in unspecified limb; Z96.60 Presence of unspecified orthopedic joint implant; Z79.01 Long term (current) use of anticoagulants; Z13.9 Encounter for screening, unspecified; Z01.818 Encounter for other preprocedural examination
CPT/HCPCS: 36415; 71046; 80048; 81001; 85025; 85610; 85730; 93005

== ENCOUNTER 2017-12-06 05:41 | Observation (INO) | payer MEDICARE, OTHER, MEDICAID ==
[~2017-12-06] VITALS: Ht 167.6 cm; Wt 78.8 kg
[~2017-12-06 05:41] MED LIST changes: -MIRA0.12 PO
[2017-12-06] MEDS ORDERED: LACTATED RINGER'S 1000 ML IV PRN (06:15)
[2017-12-06] MEDS ORDERED: POVIDONE IODINE 5% (ANTISEPSIS KIT) 4 APPLICATIONS EACH NARE PRN (06:15)
[2017-12-06] MEDS ORDERED: VANCOMYCIN 1000 MG/NS 250 ML (for <70 kg) IV SCH ×2 (06:15)
[2017-12-06] MEDS ORDERED: CHLORHEXIDINE GLUCONATE 2 % 1 PACK (2 CLOTHS) TOPICAL PRN (06:15)
[2017-12-06] MEDS ORDERED: CHLORHEXIDINE GLUCONATE 4% SOLN 120 ML BTL TOPICAL SCH (06:15)
[2017-12-06] MEDS ORDERED: SODIUM CHLORID 0.9% 500 ML IV PRN (06:15)
[2017-12-06] MEDS ORDERED: ceFAZolin 2 GM PREMIX 50 ML IV SCH (06:15)
[2017-12-06] MEDS ORDERED: METOPROLOL TARTRATE 25 MG TAB PO PRN (06:15)
[2017-12-06] MEDS ORDERED: BUPIVACAINE LIPOSOME PF 1.3% 20 ML VIAL ONE (07:24)
[2017-12-06] MEDS ORDERED: SODIUM CHLORIDE 0.9% 20 ML VIAL ONE (07:25)
[2017-12-06] MEDS ORDERED: MIDAZOLAM HCL 2 MG/2 ML VIAL ONE ×2 (07:25→07:29)
[2017-12-06] MEDS ORDERED: LIDOCAINE HCL 1% PF 5 ML AMPULE ONE (07:29)
[2017-12-06 07:37] VITALS: PULSE 54
[2017-12-06] MEDS ORDERED: GENTAMICIN SULFATE 80 MG/2 ML VIAL ONE (08:31)
[2017-12-06] MEDS ORDERED: ROPIVACAINE PERI-ARTICULAR INJECTION. P-ARTICULR SCH ×5 (08:45)
[2017-12-06] MEDS ORDERED: ROPIVACAINE 0.5% PF INJ 24.63 ML, KETOROLAC INJ 30 MG, EPINEPHrine (1:1000) INJ 0.5 MG,... P-ARTICULR SCH ×5 (08:45)
[2017-12-06] MEDS ORDERED: PROPOFOL 500 MG/50 ML INJ 50 ML ONE (08:49)
[2017-12-06] MEDS ORDERED: TRANEXAMIC ACID IV SCH (09:00)
[2017-12-06] MEDS ORDERED: SODIUM CHLORIDE 0.9% IV SCH (09:00)
[2017-12-06] MEDS ORDERED: EXPAREL PERI-ARTICULAR INJECTION (TOTAL VOL. 60 ML) P-ARTICULR SCH ×2 (09:00)
[2017-12-06] MEDS ORDERED: TEMAZEPAM 15 MG CAP PO PRN (09:45)
[2017-12-06] MEDS ORDERED: LACTULOSE SYRUP 20 GM/30 ML CUP PO PRN (10:15)
[2017-12-06] MEDS ORDERED: SENNOSIDES 8.6 MG TAB PO PRN (10:15)
[2017-12-06] MEDS ORDERED: BISACODYL 10 MG SUPP RECTAL PRN (10:15)
[2017-12-06] MEDS ORDERED: SODIUM CHLORIDE 0.9% FLUSH 10 ML FLUSH IV FLUSH PRN (10:15)
[2017-12-06] MEDS ORDERED: ALBUTEROL SULFATE 90 MCG/ACT HFA 8 GM INHALER INH PRN ×2 (10:15→11:00)
[2017-12-06] MEDS ORDERED: HYDROmorphone HCL PF 2 MG/ML VIAL IV PUSH PRN (10:30)
--- NOTE | 2017-12-06 10:57 | PD.OP ---
Operative Report Preoperative Diagnosis: (1) Osteoarthritis of left knee Postoperative Diagnosis: (1) Osteoarthritis of left knee Procedure: Left Knee Unicompartmental Arthroplasty Anesthesia: Regional and Spinal Surgeon: Rogelio Lancaster MD Truck Body Repairer(s): Rogelio Powers MD Dec 06, 2017 10:56
[2017-12-06] MEDS ORDERED: DO NOT ADM ANY ANTICOAGULANT DRUGS PRN (10:59)
[2017-12-06] MEDS ORDERED: ONDANSETRON HCL 4 MG/2 ML VIAL IVP PRN (11:00)
[2017-12-06] MEDS ORDERED: Post-op Orders (for Pharmacy) XX ONE (11:00)
[2017-12-06] MEDS ORDERED: oxyCODONE/ACETAMINOPHEN 5 MG/325 MG TAB PO PRN (11:00)
[2017-12-06] MEDS ORDERED: MAGNESIUM HYDROXIDE SUSP 30 ML CUP PO PRN (11:00)
[2017-12-06] MEDS ORDERED: *morphine SULFATE 4 MG/ML PERIprocedure ONLY ONE (11:27)
[2017-12-06] MEDS: LACTATED RINGER'S 1000 ML INJ 1,000 ML IV SCH ×2 (11:30→20:15)
[2017-12-06] MEDS ORDERED: GLYCOPYRROLATE 1 MG/5 ML SYRINGE IV PUSH ONE (12:00)
[2017-12-06] MEDS ORDERED: TRANEXAMIC ACID INJ 1,000 MG in SODIUM CHLORIDE 0.9% INJ 100 ML IV SCH (12:00)
[2017-12-06] MEDS ORDERED: ePHEDrine/NS 25 MG/5 ML SYRINGE IV ONE (12:00)
[2017-12-06] MEDS ORDERED: PHENYLEPH/NS 1000 MCG/10 ML SYR IV ONE (12:00)
[2017-12-06] MEDS ORDERED: LACTATED RINGER'S 1000 ML INJ 1,000 ML IV ONE (12:00)
--- NOTE | 2017-12-06 12:11 | RADRPT ---
EXAM DATE/TIME: 12/06/2017 11:13 [facility] COMPARISON: No previous studies available for comparison. INDICATIONS : Post left knee replacement. MEDICAL HISTORY : Diabetes mellitus type II. Renal calculi. Gastroesophageal reflux disease. SURGICAL HISTORY : None. ENCOUNTER: Initial ACUITY: 1 day PAIN SCORE: 0/10 LOCATION: Left knee. FINDINGS: Two view examination of the left knee demonstrates a postoperative medial left knee hemiarthroplasty. There is air in the joint and soft tissues. Skin xavier present anteriorly. Normal alignment. CONCLUSION: 1. Postoperative hemiarthroplasty left knee as above. Thiago Baker MD on December 06, 2017 at 12:08 Board Certified Radiologist. This report was verified electronically.
[2017-12-06] MEDS: CYCLOBENZAPRINE HCL 10 MG TAB PO SCH ×2 (13:00→18:18)
[2017-12-06] MEDS: ALPRAZolam 0.5 MG TAB PO PRN (13:58)
[2017-12-06] MEDS ORDERED: VENLAFAXINE HCL XR 75 MG CAP PO ONE (14:30)
[2017-12-06] MEDS: ceFAZolin 2 GM PREMIX 50 ML IV SCH ×2 (14:47→20:13)
[2017-12-06 16:00] VITALS: BP 106/60; PULSE 55; RESP 18; TEMP 96; O2SAT 97
[2017-12-06] MEDS: oxyCODONE/ACETAMINOPHEN 5 MG/325 MG TAB PO PRN (18:17)
[2017-12-06 20:00] VITALS: BP 98/60; PULSE 63; RESP 17; TEMP 96.8; O2SAT 93
[2017-12-06] MEDS: DOCUSATE SODIUM 50 MG/SENNA 8.6 MG TAB PO SCH (20:14)
[2017-12-06] MEDS: SODIUM CHLORIDE 0.9% FLUSH 10 ML FLUSH IV FLUSH SCH (20:15)
[2017-12-06] MEDS ORDERED: ATORVASTATIN 20 MG TAB PO SCH (21:00)
[2017-12-06] MEDS ORDERED: ZOLPIDEM TARTRATE 5 MG TAB PO PRN (21:00)
[2017-12-06] MEDS ORDERED: PRAMIPEXOLE DIHYDROCHLORIDE 0.25 MG TAB PO SCH (21:00)
[2017-12-07 00:20] VITALS: BP 99/51; PULSE 61; RESP 17; TEMP 96.7; O2SAT 97
[2017-12-07] MEDS: ALPRAZolam 0.5 MG TAB PO PRN ×2 (00:22→09:10)
[2017-12-07] MEDS: oxyCODONE/ACETAMINOPHEN 5 MG/325 MG TAB PO PRN ×3 (00:22→09:15)
[2017-12-07] MEDS: LACTATED RINGER'S 1000 ML INJ 1,000 ML IV SCH (00:23)
[2017-12-07] MEDS: ceFAZolin 2 GM PREMIX 50 ML IV SCH (02:53)
[2017-12-07 04:10] VITALS: BP 99/62; PULSE 64; RESP 18; TEMP 96.6; O2SAT 94
[2017-12-07 08:00] VITALS: BP 135/61; PULSE 62; RESP 16; TEMP 96.9; O2SAT 98
[2017-12-07] MEDS ORDERED: WALKER WHEELS/F1 MIS (08:05)
--- NOTE | 2017-12-07 08:09 | PD.ORT.PN ---
Subjective Subjective Remarks Patient comfrotable Objective Vitals Vital Signs Date Time Temp Pulse Resp B/P (MAP) Pulse Ox O2 Delivery O2 Flow Rate FiO2 12/07/17 04:10 96.6 64 18 99/62 (74) 94 12/07/17 00:20 96.7 61 17 99/51 (67) 97 12/06/17 20:00 96.8 63 17 98/60 (73) 93 12/06/17 16:00 96.0 55 18 106/60 (75) 97 12/06/17 14:50 57 18 109/56 (73) 95 Room Air 12/06/17 14:30 98.1 56 18 97/55 (69) 95 Room Air 12/06/17 14:00 58 16 111/64 (80) 97 Room Air 12/06/17 13:30 56 16 141/80 (100) 100 Room Air 12/06/17 13:00 61 16 138/69 (92) 100 Nasal Cannula 2 12/06/17 12:30 65 16 133/65 (87) 100 Nasal Cannula 2 12/06/17 12:15 62 16 135/71 (92) 100 Nasal Cannula 2 12/06/17 12:00 56 16 143/73 (96) 100 Nasal Cannula 3 12/06/17 11:45 53 17 136/72 (93) 100 Nasal Cannula 3 12/06/17 11:30 58 16 156/83 (107) 100 Nasal Cannula 3 12/06/17 11:15 53 16 121/71 (88) 100 Nasal Cannula 3 12/06/17 11:00 97.4 57 16 109/61 (77) 97 Nasal Cannula 3 12/06/17 09:54 54 95/58 12/06/17 08:53 54 18 99 I/O 12/06/17 12/06/17 12/06/17 12/07/17 12/07/17 12/07/17 07:00 15:00 23:00 07:00 15:00 23:00 Intake Total 1160 ml 290 ml 2010 ml Output Total 150 ml 300 ml Balance 1010 ml 290 ml 1710 ml Intake Oral 250 ml 240 ml 360 ml IV Total 910 ml 50 ml 1650 ml Output Urine Total 100 ml 300 ml Estimated Blood Loss 50 ml # Voids 1 # Bowel Movements 0 0 Objective Remarks xray shows good alignment of knee dressing clean dry and intact calves soft and notender NVI Assessment & Plan Ortho Post Op Day #: 1 (Left UCA) Problem List: Assessment and Plan Doing well D/C home after PT WBAT Plavix and Aspirin for DVT prevention Percocet for pain Leave dressing in place Follow up in 10 days Rogelio Lancaster MD Dec 07, 2017 08:09
[2017-12-07] MEDS ORDERED: TRIAMTERENE/HCTZ 37.5 MG/25 MG TAB PO SCH (09:00)
[2017-12-07] MEDS ORDERED: VENLAFAXINE HCL XR 75 MG CAP PO SCH (09:00)
[2017-12-07] MEDS ORDERED: ALLOPURINOL 300 MG TAB PO SCH (09:00)
[2017-12-07] MEDS ORDERED: LISINOPRIL 20 MG TAB PO SCH (09:00)
[2017-12-07] MEDS ORDERED: CARVEDILOL 3.125 MG TAB PO SCH (09:00)
[2017-12-07] MEDS: DOCUSATE SODIUM 50 MG/SENNA 8.6 MG TAB PO SCH (09:11)
[2017-12-07] MEDS: CYCLOBENZAPRINE HCL 10 MG TAB PO SCH ×2 (09:11→12:17)
[2017-12-07] MEDS: SODIUM CHLORIDE 0.9% FLUSH 10 ML FLUSH IV FLUSH SCH (09:13)
[2017-12-07 12:00] VITALS: BP 106/66; PULSE 78; RESP 16; TEMP 98; O2SAT 16
[2017-12-07 12:21] VITALS: BP 106/66; PULSE 76; RESP 16; TEMP 98; O2SAT 94
[2017-12-07] MEDS ORDERED: MULTIVITAMINS/MINERALS THERAPEUTIC TAB PO SCH (21:00)
--- NOTE | 2017-12-08 21:40 | MP ---
cc: ROCIO CHING DATE OF SURGERY 12/06/17 PREOPERATIVE DIAGNOSIS Left knee severe medial compartment osteoarthritis. POSTOPERATIVE DIAGNOSIS Left knee severe medial compartment osteoarthritis. PROCEDURE Left knee medial compartment unit compartmental arthroplasty using Karl/Karl DePuy size four tibial component, size four femoral component with a 7 mm polyethylene SURGEON Alicia Ching MD CRANE ASSEMBLER SURGEON SATISH Rutherford ESTIMATED BLOOD LOSS 50 mL DRAINS None. SPECIMEN Bony fragments discarded. COMPLICATIONS None. INDICATION Thiago Morris is 67-year-old male with severe medial compartment knee osteoarthritis and is indicated for unicompartmental arthroplasty. Detailed informed consent was obtained having discussed the options thoroughly. The certified surgical first assistant is an advanced registered nurse practitioner. His skill set was medically necessary for performance of the operation. PROCEDURE IN DETAIL The patient was given a regional block in the preop holding area then brought to the operating room. Left lower extremity was prepped and draped in the usual sterile fashion with the patient under a spinal anesthetic. We completed our time-out and made a an incision along the medial patella and medial patellar tendon region and meticulous hemostasis down ti the fascial layer and fascia was then split in a medial parapatellar fashion. The fat pad was tagged for later repair. The severe arthritis was noted [id number] medial compartment. Patellofemoral joint appeared preserved. We used our tibial cutting guide to make our tibial cut and then proceeded to size this, size four, and then used our distal cutting block on the femur, 8 mm resection, and then proceeded to size this, size four. We fixated the cutting block and then proceeded with our cuts for the femoral side. We then proceeded with trialing our components resecting the residual meniscus. We then proceeded to place the components on the field. Finishing cuts on the tibia were made. Pulse lavage antibiotic irrigation. Bone cement was mixed. The components were cemented in place. Residual cement was removed. We trialed and ultimately the size seven was the correct polyethylene. Final polyethylene placed. Once again checked for bone cement, irrigated out with copious amounts of irrigation. This tourniquet had been let down at 10 minutes. We had very good hemostasis and we injected numbing medication about the knee. We then proceeded to close in layers. We closed with absorbable sutures in layers. [place] used on the skin. Xeroform applied. Sterile dressing applied. Dorian wrap applied. The patient was awaken, returned to recovery room in stable condition. MD SHARON Palma/ /12:43 PM /9:32 PM
--- NOTE | 2017-12-18 09:44 | MD ---
cc: Rogelio Lancaster MD DATE OF DISCHARGE: 12/07/2017 ADMITTING DIAGNOSIS: Left knee severe medial compartment osteoarthritis. PROCEDURE: Left knee unicompartmental arthroplasty. The patient is a 67-year-old male with severe medial compartmental knee osteoarthritis. He has failed conservative management and indicated for left knee unicompartmental arthroplasty. He underwent preoperative clearance, surgical consent was signed, came in through same day surgery, underwent surgery without complication. He was maintained on 23 hours IV antibiotics. He was initiated on DVT prophylaxis. Medical consultation was obtained. Physical therapy consultation was obtained. He was transitioned from IV to p.o. pain medication. He did well during hospitalization. Did not have complications and on postop day 2 he was discharged as the vital signs remained stable. He was discharged home with home health care for continuation of rehabilitation. He was ____ standard medication as well as prescription for Percocet for pain management and aspirin for DVT prophylaxis. Continue to stay on a regular diet with followup scheduled in the office in 2 weeks. Dictated by SATISH Burch Rogelio Lancaster MD JMB/rt , 05:40 PM , 11:21 PM
== END 2017-12-07 13:12 | disposition home or self-care (01) ==
LOC: HSDC 05:41 → INTOOBSV 09:41 → HSDI 09:41 → N06B 15:04
PROVIDERS: ADMIT Orthopaedic Surgery Sports Medicine; ATTEND Orthopaedic Surgery Sports Medicine
DX: M17.12 Unilateral primary osteoarthritis, left knee (principal); E11.9 Type 2 diabetes mellitus without complications; K21.9 Gastro-esophageal reflux disease without esophagitis
CPT/HCPCS: 01400; 27446; 64450; 73560; 86850; 86900; 86901; 94150; 96361; 96365; 96375; 97110; 97116; 97163; C1776; C9290; G0378; G8987; G8988; J0171; J0690; J0735; J1170; J1580; J1885; J2250; J2270; J2370; J2795; J3370; J7050; J7120

== ENCOUNTER 2018-03-07 19:36 | Emergency (ER) | payer MEDICARE, OTHER, MEDICAID ==
[~2018-03-07] VITALS: Ht 167.6 cm; Wt 78.5 kg
[~2018-03-07 19:36] MED LIST changes: +WALKER WHEELS/F1 MIS
[2018-03-07 19:48] VITALS: BP 156/77; PULSE 75; RESP 20; TEMP 98.6; O2SAT 95
--- NOTE | 2018-03-07 20:56 | PD ---
HPI Chief Complaint: Fall Time Seen by Provider: 20:07 Travel History International Travel<30 days: No Contact w/Intl Traveler<30days: No Traveled to known affect area: No History of Present Illness HPI 67-year-old male presents to the emergency room for evaluation of right chest wall and right shoulder pain after mechanical fall 1 hour prior to arrival. Patient states he accidentally tripped over his son's scooter and fell onto his chest and abdomen. Since then he has had pain in his right chest wall, worse with deep breathing. States he already was experiencing right neck/shoulder pain after sleeping on it funny yesterday and that pain was exacerbated today after falling. He has not taken anything for symptoms. Right arm pain is worse with any range of motion. He denies any paresthesias. PFSH Past Medical History Hx Anticoagulant Therapy: Yes (PLAVIX) Arthritis: No Asthma: Yes Anxiety: Yes Depression: Yes Heart Rhythm Problems: No Cancer: No Cardiac Catheterization: Yes Cardiovascular Problems: Yes (CAD) High Cholesterol: Yes Chemotherapy: No Chest Pain: Yes Congestive Heart Failure: No COPD: No Diabetes: Yes (TYPE 2) Patient Takes Glucophage: Yes Diminished Hearing: No Endocrine: Yes Gastrointestinal Disorders: Yes (GERD, NO MEDICATIONS) GERD: Yes Gout: Yes Genitourinary: Yes (GOUT) Hepatitis: No Hiatal Hernia: No Hypertension: Yes Immune Disorder: No Kidney Stones: Yes Musculoskeletal: Yes (CHRONIC BACK PAIN GETS INJECTIONS, L KNEE SHARP PAIN) Neurologic: Yes (TREMORS, RESTLESS LEG) Psychiatric: Yes Reproductive: No Respiratory: Yes (ASTHMA) Radiation Therapy: No Sleep Apnea: No Thyroid Disease: No Triglycerides - High: Yes Ulcer: No Tetanus Vaccination: < 5 Years Influenza Vaccination: Yes Past Surgical History AICD: No Body Medical Devices: METAL IN L KNEE Joint Replacement: No Pacemaker: No Other Surgery: Yes (Rhinoplasty/TRIGER FINGER RELEASE) Social History Alcohol Use: Yes (Rarely) Tobacco Use: No Substance Use: No Allergies-Medications (Allergen,Severity, Reaction): Coded Allergies: ciprofloxacin (Unverified Allergy, Severe, RASH, 09/16/17) Sulfa (Sulfonamide Antibiotics) (Unverified Allergy, Unknown, ITCHY, ) Reported Meds & Prescriptions Reported Meds & Active Scripts Active Lidocaine Patch 12 HR (Lidocaine) 5 % Patch 1 Patch TOPICAL DAILY PRN Remove patch after 12 hours Walker with Front Wheels (Device) 1 Mis Mis Ea .XX DIRECTED Hydrocodone-Acetaminophen 5-325 mg Tab 1 Tab PO Q4H PRN Flexeril (Cyclobenzaprine HCl) 10 Mg Tab 10 Mg PO TID Reported Proair Hfa 8.5 GM Inh (Albuterol Sulfate) 90 Mcg/Act Aer 2 Puff INH Q4-6H PRN 108 mcg/actuation Mirapex (Pramipexole Dihydrochloride) 0.75 Mg Tab 0.75 Mg PO HS Aspirin 81 Mg Chew 81 Mg CHEW DAILY Carvedilol 3.125 Mg Tab 3.125 Mg PO DAILY Plavix (Clopidogrel Bisulfate) 75 Mg Tab 75 Mg PO DAILY Proventil Hfa 6.7 GM Inh (Albuterol Sulfate) 90 Mcg/Act Aer 2 Puff INH Q4-6H PRN Januvia (Sitagliptin Phosphate) 25 Mg Tab 25 Mg PO DAILY Effexor XR 24 HR (Venlafaxine HCl) 150 Mg Cap 150 Mg PO DAILY Allopurinol 300 Mg Tab 300 Mg PO DAILY Xanax (Alprazolam) 0.5 Mg Tab 0.5 Mg PO TID PRN Lipitor (Atorvastatin Calcium) 20 Mg Tab 20 Mg PO HS Maxzide-25 (Triamterene-Hydrochlorothiazide) 37.5-25 Mg Tab 1 Tab PO DAILY Benazepril (Benazepril HCl) 40 Mg Tab 40 Mg PO DAILY Review of Systems Except as stated in HPI: all other systems reviewed are Neg Physical Exam Narrative GENERAL: Well-nourished, well-developed male in no acute distress. Afebrile. Ambulatory. SKIN: Focused skin assessment warm/dry. HEAD: Normocephalic. EYES: No scleral icterus. No injection or drainage. NECK: Supple, trachea midline. No JVD or lymphadenopathy. CARDIOVASCULAR: Regular rate and rhythm without murmurs, gallops, or rubs. RESPIRATORY: Breath sounds equal bilaterally. No accessory muscle use. No crackles, rales, wheezes, or rhonchi. CHEST: Nontender throughout without deformity or crepitus. No retractions or use of accessory muscles. MSK: Tenderness to palpation in the right posterior shoulder/trapezius muscle. Patient has somewhat limited range of motion secondary to pain. 2+ radial pulse. Radial, ulnar, and median nerves intact. Data Data Last Documented VS Vital Signs Date Time Temp Pulse Resp B/P (MAP) Pulse Ox O2 Delivery O2 Flow Rate FiO2 03/07/18 19:48 98.6 75 20 156/77 (103) 95 Orders Orders Ribs, Uni (W/Exp Cxr-Min 3vw) (03/07/18 ) Ed Discharge Order (03/07/18 21:04) [facility] Medical Decision Making Medical Screen Exam Complete: Yes Emergency Medical Condition: Yes Medical Record Reviewed: Yes Differential Diagnosis Fracture, contusion, sprain, strain, dislocation Narrative Course 67-year-old male presents to the emergency room for evaluation of right chest wall and right shoulder pain after mechanical fall just prior to arrival. Patient fell forward and landed on his right chest wall and belly. He denies hitting his head or loss of consciousness. No other significant injuries. Physical exam is reassuring. Vital signs stable. Right upper extremity is neurovascularly intact with 2+ radial pulse. Radial, ulnar, and median nerves intact. Somewhat limited range of motion secondary to pain in the right posterior/trapezius muscle. I suspect patient has muscle strain/spasm. X-ray of the right chest wall shows no obvious rib fractures or pneumothorax. Likely contusion. Patient reassured and encouraged to take deep breaths to prevent pneumonia. Encouraged to continue deep breathing and follow-up with a primary care physician or return to the emergency room for worsening symptoms. He understands and agrees to plan. Diagnosis Primary Impression: Chest wall pain Additional Impression: Trapezius muscle strain Qualified Codes: S46.811A - Strain of other muscles, fascia and tendons at shoulder and upper arm level, right arm, initial encounter Referrals: Primary Care Physician Additional Instructions: Rest and drink plenty of fluids. Take Tylenol as directed, as needed for pain. Apply ice to the affected area for 20 minutes at a time, as needed for pain and swelling. Follow-up with a primary care physician. Return to the emergency room for worsening symptoms. Med/Other Pt SpecificInfo: Prescription(s) given Scripts Lidocaine Patch 12 HR (Lidocaine Patch 12 HR) 5 % Patch 1 PATCH TOPICAL DAILY Y for PAIN, #1 BOX 0 Refills Remove patch after 12 hours Prov: Pedro Watkins MD 03/07/18 Disposition: 01 DISCHARGE HOME Condition: Stable Cele Yang March 07, 2018 20:56
--- NOTE | 2018-03-07 21:04 | RADRPT ---
EXAM DATE: 03/07/2018 8:57 PM EDT AGE/SEX: 67 years / Male INDICATIONS: Right side rib pain on proximal and mid-lateral side after fall. CLINICAL DATA: This is the patient's initial encounter. Patient reports that signs and symptoms have been present for 1 day and indicates a pain score of 8/10. MEDICAL/SURGICAL HISTORY: None. Total knee replacement, left. Right shoulder. Left shoulder. COMPARISON: No prior [facility] exams available for comparison. FINDINGS: There is no evidence of displaced fracture. No destructive lesions or areas of periosteal thickening are seen. Expiratory view of the chest is negative for pneumothorax. The mediastinal structures ar e midline. Surgical changes are noted in the shoulder. There is apparent atelectasis in the lungs. CONCLUSION: The ribs are intact with no visualized fracture or pneumothorax. Electronically signed by: Huber Peterson MD 03/07/2018 9:03 PM EDT
[2018-03-07] MEDS ORDERED: LIDO1PAD52 TOPICAL (21:05)
== END 2018-03-07 21:11 | disposition home or self-care (01) ==
LOC: PHEFT 19:36
DX: R07.89 Other chest pain (principal); S46.811A Strain of other muscles, fascia and tendons at shoulder and upper arm level, right arm, initial encounter; M54.2 Cervicalgia; I25.10 Atherosclerotic heart disease of native coronary artery without angina pectoris; E11.9 Type 2 diabetes mellitus without complications; I10 Essential (primary) hypertension; J45.909 Unspecified asthma, uncomplicated; W18.09XA Striking against other object with subsequent fall, initial encounter; Y93.01 Activity, walking, marching and hiking; Z79.01 Long term (current) use of anticoagulants
CPT/HCPCS: 71101; 99283